=== PATIENT | female | born 1960 | race Caucasian/White ===

== ENCOUNTER 2017-09-29 06:58 | Inpatient (IN) | payer MEDICARE ==
[~2017-09-29] VITALS: Ht 165.1 cm; Wt 81.2 kg
[2017-09-29] MEDS ORDERED: Sodium Chloride 500ML 500 ML IV ONE (07:06)
[2017-09-29] MEDS ORDERED: Pantoprazole Inj IVP ONE (07:15)
[2017-09-29] MEDS ORDERED: ALPRAZolam 0.5mg tab ORAL ONE (07:15)
[2017-09-29 08:01] LABS: BASOPHILS % (AUTO) 1.1 % (0.0-2.0); EOSINOPHILS % (AUTO) 0.6 % (0.0-3.0); HEMATOCRIT 37.4 % (37.0-47.0); HEMOGLOBIN 12.8 G/DL (12.0-16.0); LYMPHOCYTES % (AUTO) 37.4 % (20.0-45.0); MEAN CORPUSCULAR VOLUME 89 FL (80-99); MONOCYTES % (AUTO) 2.7 % (1.0-10.0); NEUTROPHILS % (AUTO) 58.3 % (45.0-75.0); PLATELET COUNT 341 K/UL (150-450); RED BLOOD COUNT 4.19 M/UL (4.20-5.40); RED CELL DISTRIBUTION WIDTH 12.6 % (11.6-14.8); WHITE BLOOD COUNT 9.1 K/UL (4.8-10.8)
--- NOTE | 2017-09-29 08:03 | Emergency Room Report ---
History of Present Illness General Chief Complaint: General Complaint Source: Patient Present Illness HPI Patient presents with complaints of body ache and cramping Denies any headache denies any chest pain Patient has some scattering of thought process Requesting Xanax, then requesting Valium stating that it works better for her cramps After further discussion patient also reports dark blood per rectum and also vomiting of blood Dark material starting yesterday Patient reports feeling weak and lethargic Denies any fever Allergies: Coded Allergies: HALOPERIDOL (Verified Allergy, Unknown, 09/29/17) SULFA (SULFONAMIDE ANTIBIOTICS) (Verified Allergy, Unknown, 09/29/17) Patient History Past Medical History: see triage record Pertinent Family History: none Reviewed Nursing Documentation: PMH: Agreed; PSxH: Agreed Nursing Documentation-PMH Past Medical History: No History, Except For History Of Psychiatric Problem: Yes - Bipolar Review of Systems All Other Systems: negative except mentioned in HPI Physical Exam Vital Signs Date Time Temp Pulse Resp B/P (MAP) Pulse Ox O2 Delivery O2 Flow Rate FiO2 09/29/17 06:50 96.8 90 18 135/72 91 Room Air 96.8 Sp02 EP Interpretation: reviewed, normal General Appearance: well appearing, no apparent distress Head: normocephalic, atraumatic Eyes: bilateral eye PERRL, bilateral eye EOMI ENT: hearing grossly normal, normal pharynx, TMs + canals normal, uvula midline Neck: full range of motion, supple, no meningismus, no bony tend Respiratory: lungs clear, normal breath sounds, no rhonchi, no respiratory distress, no retraction, no accessory muscle use Cardiovascular #1: normal peripheral pulses, regular rate, rhythm, no edema, no gallop, no JVD, no murmur Gastrointestinal: normal bowel sounds, non tender, soft, no mass, no organomegaly, non-distended, no guarding, no hernia, no pulsatile mass, no rebound, other - Melena on the bed sheat Genitourinary: no CVA tenderness Musculoskeletal: normal inspection Neurologic: oriented x3, responsive, unattended ground sensor specialist III-XII nml as tested, motor strength/ tone normal, sensory intact Psychiatric: mood/affect normal Skin: normal color, no rash, warm/dry, palpation normal Lymphatic: normal inspection, no adenopathy Medical Decision Making Diagnostic Impression: Primary Impression: GI bleed ER Course Multiple differentials considered given the patient's melena on the exam GI bleeding is considered patient was given IV medication for that At this time the hemoglobin is appropriate Which provide some reassurance nevertheless given the patient's tachycardia and presentation will require inpatient care Labs Test 09/29/17 07:20 09/29/17 08:30 White Blood Count 9.1 K/UL (4.8-10.8) Red Blood Count 4.19 M/UL (4.20-5.40) Hemoglobin 12.8 G/DL (12.0-16.0) Hematocrit 37.4 % (37.0-47.0) Mean Corpuscular Volume 89 FL (80-99) Mean Corpuscular Hemoglobin 30.5 PG (27.0-31.0) Mean Corpuscular Hemoglobin Concent 34.1 G/DL (32.0-36.0) Red Cell Distribution Width 12.6 % (11.6-14.8) Platelet Count 341 K/UL (150-450) Mean Platelet Volume 7.1 FL (6.5-10.1) Neutrophils (%) (Auto) 58.3 % (45.0-75.0) Lymphocytes (%) (Auto) 37.4 % (20.0-45.0) Monocytes (%) (Auto) 2.7 % (1.0-10.0) Eosinophils (%) (Auto) 0.6 % (0.0-3.0) Basophils (%) (Auto) 1.1 % (0.0-2.0) Sodium Level 138 MMOL/L (136-145) Potassium Level 4.6 MMOL/L (3.5-5.1) Chloride Level 103 MMOL/L (98-107) Carbon Dioxide Level 24 MMOL/L (21-32) Anion Gap 11 mmol/L (5-15) Blood Urea Nitrogen 49 mg/dL (7-18) Creatinine 1.1 MG/DL (0.55-1.30) Estimat Glomerular Filtration Rate 51.2 mL/min (>60) Glucose Level 146 MG/DL (74-106) Calcium Level 9.1 MG/DL (8.5-10.1) Total Bilirubin 0.5 MG/DL (0.2-1.0) Aspartate Amino Transf (AST/SGOT) 20 U/L (15-37) Alanine Aminotransferase (ALT/SGPT) 29 U/L (12-78) Alkaline Phosphatase 137 U/L (46-116) Total Creatine Kinase 56 U/L (26-308) Creatine Kinase MB 1.3 NG/ML (0.0-3.6) Creatine Kinase MB Relative Index 2.3 Troponin I 0.000 ng/mL (0.000-0.056) Total Protein 7.7 G/DL (6.4-8.2) Albumin 3.4 G/DL (3.4-5.0) Globulin 4.3 g/dL Albumin/Globulin Ratio 0.8 (1.0-2.7) Lipase 90 U/L (73-393) Rhythm Strip Diag. Results EP Interpretation: yes Rate: 98 Rhythm: NSR, no PVC's, no ectopy Chest X-Ray Diagnostic Results Chest X-Ray Diagnostic Results : Chest X-Ray Ordered: Yes # of Views/Limited/Complete: 1 View Indication: Chest Pain EP Interpretation: Yes Interpretation: no consolidation, no effusion, no pneumothorax Impression: No acute disease Electronically Signed by: Hermann Neville DO Last Vital Signs Date Time Temp Pulse Resp B/P (MAP) Pulse Ox O2 Delivery O2 Flow Rate FiO2 09/29/17 06:50 96.8 90 18 135/72 91 Room Air 96.8 Status: improved Disposition: ADMITTED INPATIENT Condition: Serious Hermann Neville DO Sep 29, 2017 08:03
[2017-09-29 08:14] LABS: ANION GAP 11 mmol/L (5-15); BLOOD UREA NITROGEN 49 mg/dL (7-18); CALCIUM 9.1 MG/DL (8.5-10.1); CARBON DIOXIDE 24 MMOL/L (21-32); CHLORIDE 103 MMOL/L (98-107); CREATININE 1.1 MG/DL (0.55-1.30); POTASSIUM 4.6 MMOL/L (3.5-5.1); SODIUM 138 MMOL/L (136-145)
[2017-09-29 08:27] LABS: ALANINE AMINOTRANSFERASE 29 U/L (12-78); ALBUMIN 3.4 G/DL (3.4-5.0); ALBUMIN/GLOBULIN RATIO 0.8 (1.0-2.7); ALKALINE PHOSPHATASE 137 U/L (46-116); ASPARTATE AMINO TRANSFERASE 20 U/L (15-37); BILIRUBIN,TOTAL 0.5 MG/DL (0.2-1.0); CKMB 1.3 NG/ML (0.0-3.6); CREATINE KINASE 56 U/L (26-308)
[2017-09-29 08:52] VITALS: BP 86/32
[2017-09-29 09:02] LABS: APPEARANCE,URINE SLIGHTLY CLOUDY; COLOR,URINE YELLOW
[2017-09-29 09:03] LABS: BILIRUBIN, URINE 2+ (NEGATIVE); GLUCOSE, URINE (UA) NEGATIVE (NEGATIVE); KETONES,URINE 1+ (NEGATIVE); LEUKOCYTE ESTERASE ,URINE 3+ (NEGATIVE); NITRITE,URINE NEGATIVE (NEGATIVE); PH,URINE 5 (4.5-8.0); PROTEIN,URINE 3+ (NEGATIVE); UROBILINOGEN,URINE 1 MG/DL (0.0-1.0)
[2017-09-29] MEDS ORDERED: VIBRAMYCIN100 MG ORAL (09:49)
[2017-09-29] MEDS ORDERED: METRONIDAZOLE500 MG ORAL (09:49)
[2017-09-29] MEDS ORDERED: DIAZEPAM10 MG ORAL (09:49)
[2017-09-29 10:50] VITALS: BP 132/65
--- NOTE | 2017-09-29 10:51 | Diagnostic Imaging Report ---
Indication: Dyspnea Comparison: None A single view chest radiograph was obtained. Findings: Cardiomediastinal appearance is within normal limits for age. Pulmonary vascularity is appropriate. The diaphragmatic contour is smooth and costophrenic angles are sharp. No pleural effusions are identified. The bones are unremarkable. Left hemidiaphragm is slightly elevated. Impression: No acute findings
[2017-09-29 12:00] VITALS: BP 111/68
[2017-09-29] MEDS: 1/2NS w/KCl 20mEq 1000ml 1,000 ML IV SCH (12:31)
--- NOTE | 2017-09-29 16:59 | Cardiology Report ---
APPROVED REPORT EKG Measurement Heart [id number] OR [id number] [id number] Sinus tachycardia Left anterior fascicular block Cannot rule out Inferior infarct, age undetermined Cannot rule out Anterior infarct, age undetermined Abnormal ECG
[2017-09-29 20:00] VITALS: BP 141/96
[2017-09-29] MEDS: Pantoprazole Inj IVP SCH (21:00)
--- NOTE | 2017-09-29 21:00 | History and Physical Report ---
DATE OF ADMISSION: 09/29/2017 CHIEF COMPLAINT: Multiple, the patient is not focused. HISTORY OF PRESENT ILLNESS: This is a 57-year-old female from [facility] admitted with multiple complaints. She lives in a psychiatric [facility]. PAST MEDICAL HISTORY: Schizophrenia. MEDICATIONS: Valium 10 mg b.i.d., doxycycline one daily, Flagyl 500 mg t.i.d., the indication for which are not known. ALLERGIES: Haloperidol and sulfa. SOCIAL HISTORY: Unable to obtain secondary to unfocused, has multiple nonspecific complaints. FAMILY HISTORY: Unable to obtain secondary to unfocused, has multiple nonspecific complaints. REVIEW OF SYSTEMS: Unable to obtain secondary to unfocused, has multiple nonspecific complaints. PHYSICAL EXAMINATION: GENERAL: This is an elderly female, who is in no acute distress. VITAL SIGNS: Blood pressure 86/32, pulse 94 and regular, respirations 20, and temperature 98.2 degrees. HEENT: The head is normocephalic and atraumatic. Pupils are equal, round and reactive to light and accommodation consensually. NECK: Supple. Trachea midline. There was no lymphadenopathy or thyromegaly. LUNGS: Clear to auscultation and percussion. HEART: Regular rate and rhythm without rubs, murmurs, or gallops. ABDOMEN: Soft and nontender. Bowel sounds were active. EXTREMITIES: No clubbing, cyanosis, or edema. NEUROLOGICAL: She is confused. There were no gross focal finding. LABORATORY AND ANCILLARY DATA: CBC within normal limits. Chemistry, alkaline phosphatase 137, otherwise within normal limits. ASSESSMENT: Suspected GI bleed due to the patient's melena. PLAN: 1. We will admit to telemetry. 2. GI consult. 3. Recheck hemoglobin and hematocrit. 4. Proton pump inhibitor. Tiffany Herman M.D. DR: KATT JOB#: [id number] CC: ELIZABETH
[2017-09-30] VITALS: BP 108/43
[2017-09-30] MEDS: 1/2NS w/KCl 20mEq 1000ml 1,000 ML IV SCH ×2 (00:48→13:40)
[2017-09-30 04:00] VITALS: BP 120/75
--- NOTE | 2017-09-30 06:54 | General Progress Note ---
Assessment/Plan Assessment/Plan GIB? Recheck CBC. GI called. Subjective Allergies: Coded Allergies: HALOPERIDOL (Verified Allergy, Unknown, 09/29/17) SULFA (SULFONAMIDE ANTIBIOTICS) (Verified Allergy, Unknown, 09/29/17) Subjective Manic. Unreliable c/o. Objective Last 24 Hour Vital Signs Date Time Temp Pulse Resp B/P (MAP) Pulse Ox O2 Delivery O2 Flow Rate FiO2 09/30/17 04:00 111 09/30/17 04:00 98.0 115 20 120/75 95 Room Air 98.0 09/30/17 00:00 100 09/30/17 00:00 97.0 107 20 108/43 100 Room Air 97.0 09/29/17 20:00 116 09/29/17 20:00 97.3 104 18 141/96 98 Room Air 97.3 09/29/17 16:00 103 09/29/17 12:00 98.0 84 18 111/68 96 Room Air 98.0 09/29/17 11:15 98.2 93 18 132/65 95 Room Air 2.0 98.2 09/29/17 10:50 93 18 132/65 95 Room Air 09/29/17 08:52 98.2 94 18 86/32 99 Nasal Cannula 2.0 98.2 Intake and Output 09/29/17 09/30/17 19:00 07:00 Intake Total 1020 ml Balance 1020 ml Intake Oral 1020 ml Laboratory Tests 09/29/17 07:20: White Blood Count 9.1, Red Blood Count 4.19L, Hemoglobin 12.8, Hematocrit 37.4, Mean Corpuscular Volume 89, Mean Corpuscular Hemoglobin 30.5, Mean Corpuscular Hemoglobin Concent 34.1, Red Cell Distribution Width 12.6, Platelet Count 341, Mean Platelet Volume 7.1, Neutrophils (%) (Auto) 58.3, Lymphocytes (%) (Auto) 37.4, Monocytes (%) (Auto) 2.7, Eosinophils (%) (Auto) 0.6, Basophils (%) (Auto ) 1.1, Sodium Level 138, Potassium Level 4.6, Chloride Level 103, Carbon Dioxide Level 24, Anion Gap 11, Blood Urea Nitrogen 49H, Creatinine 1.1, Estimat Glomerular Filtration Rate 51.2, Glucose Level 146H, Calcium Level 9.1, Total Bilirubin 0.5, Aspartate Amino Transf (AST/SGOT) 20, Alanine Aminotransferase (ALT/SGPT) 29, Alkaline Phosphatase 137H, Total Creatine Kinase 56, Creatine Kinase MB 1.3, Creatine Kinase MB Relative Index 2.3, Troponin I 0.000, Total Protein 7.7, Albumin 3.4, Globulin 4.3, Albumin/ Globulin Ratio 0.8L, Lipase 90 09/29/17 08:30: Urine Color Yellow, Urine Appearance Slightly cloudy, Urine pH 5, Urine Specific [place] 1.020, Urine Protein 3+H, Urine Glucose (UA) Negative, Urine Ketones 1+H, Urine Occult Blood 2+H, Urine Nitrite Negative, Urine Bilirubin 2+H , Urine Ictotest Negative, Urine Urobilinogen 1H, Urine Leukocyte Esterase 3+H, Urine RBC 2-4H, Urine WBC 60-80H, Urine Squamous Epithelial Cells ModerateH, Urine Bacteria ModerateH Height (Feet): 5 Height (Inches): 5.00 Weight (Pounds): 180 Objective Cv RR Lungs CTA Abd SNT. BS + E No CCE Tiffany Herman MD Sep 30, 2017 06:54
[2017-09-30 08:00] VITALS: BP 128/78
--- NOTE | 2017-09-30 08:03 | Anethesia Preoperative Eval ---
Anesthesia Pre-op PMH/ROS General Date of Evaluation: Sep 30, 2017 Time of Evaluation: 08:00 Anesthesiologist: shala ASA Score: ASA 2 Mallampati Score Class I : Soft palate, uvula, fauces, pillars visible Class II: Soft palate, uvula, fauces visible Class III: Soft palate, base of uvula visible Class IV: Only hard plate visible Mallampati Classification: Class II Surgeon: yevgeniy Diagnosis: gi bleed Surgical Procedure: egd Anesthesia History: none Social History: smoking - nonsmoker Family History: no anesthesia problems Allergies: Coded Allergies: HALOPERIDOL (Verified Allergy, Unknown, 09/29/17) SULFA (SULFONAMIDE ANTIBIOTICS) (Verified Allergy, Unknown, 09/29/17) Medications: see eMAR Past Medical History Gastrointestinal/Genitourinary: Reports: other - gi bleed Neurologic/Psychiatric: Reports: other - bulimia Anesthesia Pre-op Phys. Exam Physician Exam Last Vital Signs Date Time Temp Pulse Resp B/P (MAP) Pulse Ox O2 Delivery O2 Flow Rate FiO2 09/30/17 04:00 111 09/30/17 04:00 98.0 20 120/75 95 Room Air 98.0 09/29/17 11:15 2.0 Constitutional: NAD Neurologic: CN 2-12 intact Cardiovascular: RRR Respiratory: CTA Gastrointestinal: S/NT/ND Airway Exam Mallampati Score: Class II MO: limited Neck: short TMD: 2fb ROM: limited Anesthesia Pre-op A/P Risk Assessment & Plan Assessment: asa2 Plan: mac Status Change Before Surgery: No Pre-Antibiotics Drug: YUSRA Melo Sep 30, 2017 08:03
[2017-09-30] MEDS ORDERED: Midazolam 2mg/2ml Inj IVP PRN (08:15)
[2017-09-30] MEDS ORDERED: DiphenhydrAMINE 50mg/ml Inj IVP PRN (08:15)
[2017-09-30] MEDS ORDERED: Atropine Inj 1mg/10ml Syr IV PRN (08:15)
[2017-09-30] MEDS ORDERED: fentaNYL 100 mcg/2 mL IV PRN (08:15)
[2017-09-30] MEDS ORDERED: Pantoprazole Inj IVP SCH (09:00)
[2017-09-30] MEDS: Pantoprazole Inj IVP SCH ×2 (09:15→21:00)
--- NOTE | 2017-09-30 11:05 | Consultation ---
History of Present Illness General Chief Complaint: General Complaint Present Illness Allergies: Coded Allergies: HALOPERIDOL (Verified Allergy, Unknown, 09/29/17) SULFA (SULFONAMIDE ANTIBIOTICS) (Verified Allergy, Unknown, 09/29/17) Patient History Healthcare decision maker Resuscitation status Advanced Directive on File Physical Exam Last 24 Hour Vital Signs Date Time Temp Pulse Resp B/P (MAP) Pulse Ox O2 Delivery O2 Flow Rate FiO2 09/30/17 08:00 97.7 105 20 128/78 97 Room Air 97.7 09/30/17 07:39 78 09/30/17 04:00 111 09/30/17 04:00 98.0 115 20 120/75 95 Room Air 98.0 09/30/17 00:00 100 09/30/17 00:00 97.0 107 20 108/43 100 Room Air 97.0 09/29/17 20:00 116 09/29/17 20:00 97.3 104 18 141/96 98 Room Air 97.3 09/29/17 16:00 103 09/29/17 12:00 98.0 84 18 111/68 96 Room Air 98.0 09/29/17 11:15 98.2 93 18 132/65 95 Room Air 2.0 98.2 Intake and Output 09/29/17 09/30/17 19:00 07:00 Intake Total 1020 ml Balance 1020 ml Intake Oral 1020 ml Height (Feet): 5 Height (Inches): 5.00 Weight (Pounds): 180 Medications Current Medications Medications (Trade) Dose Ordered Sig/Sherrie Route PRN Reason Start Time Stop Time Status Last Admin Dose Admin Al Hydroxide/Mg Hydroxide (Mylanta) 15 ml Q1H PRN ORAL gi upset 09/30/17 08:15 09/30/17 14:00 Atropine Sulfate (Atropine) 0.5 mg Q5M PRN IV bpm less than 45 09/30/17 08:15 09/30/17 14:00 Chlorpromazine (Thorazine) 25 mg Q6H PRN ORAL Agitation 09/30/17 11:15 10/30/17 11:14 UNV Dextrose (Dextrose 50%) 25 ml STAT PRN IV Hypoglycemia 09/29/17 10:45 10/29/17 10:44 Dextrose (Dextrose 50%) 50 ml STAT PRN IV Hypoglycemia 09/29/17 10:45 10/29/17 10:44 Diphenhydramine HCl (Benadryl) 25 mg Q15M PRN IVP Itching 09/30/17 08:15 09/30/17 14:00 Fentanyl Citrate (Sublimaze 100 mcg/2 mL) 25 mcg Q10M PRN IV Moderate Pain (Pain Scale 4-6) 09/30/17 08:15 09/30/17 14:00 Fluphenazine Decanoate (Prolixin Deconate) 25 mg ONCE ONCE IM 09/30/17 11:15 09/30/17 11:16 UNV Hydralazine HCl (Apresoline) 5 mg Q30M PRN IV SBP>160 OR___/DBP>90 OR___ 09/30/17 08:15 09/30/17 14:00 Midazolam HCl (Versed 2mg/2ml vial) 1 mg Q15M PRN IVP For Anxiety 09/30/17 08:15 09/30/17 14:00 Ondansetron HCl (Zofran) 4 mg Q1H PRN IVP Nausea & Vomiting 09/30/17 08:15 09/30/17 14:00 Pantoprazole (Protonix) 40 mg Q12HR IVP 09/29/17 21:00 10/30/17 08:59 09/30/17 09:15 Sodium 1,000 ml @ 75 mls/hr [id number] IV 09/29/17 11:00 10/29/17 10:59 09/30/17 00:48 Assessment/Plan Assessment/Plan the pt lacks capacity to make any decisions. therefore next of keen should make all the decisions Orlin Carrasquillo M.D. Sep 30, 2017 11:05
[2017-09-30] MEDS: Depakote 500mg tab ORAL SCH ×2 (11:46→21:00)
[2017-09-30 12:00] VITALS: BP 126/74
[2017-09-30] MEDS ORDERED: fluPHENAZine Decanoate 25mg Inj IM SCH (12:00)
--- NOTE | 2017-09-30 15:26 | General Progress Note ---
Assessment/Plan Status: not improved, unchanged Assessment/Plan bipolar d/o the pt lacks capacity d/w brother who was also irrational cont current meds Subjective Date patient seen: Sep 30, 2017 Neurologic/Psychiatric: Reports: anxiety, depressed, emotional problems Allergies: Coded Allergies: HALOPERIDOL (Verified Allergy, Unknown, 09/29/17) SULFA (SULFONAMIDE ANTIBIOTICS) (Verified Allergy, Unknown, 09/29/17) Objective Last 24 Hour Vital Signs Date Time Temp Pulse Resp B/P (MAP) Pulse Ox O2 Delivery O2 Flow Rate FiO2 09/30/17 12:00 97.5 97 20 126/74 97 Room Air 97.5 09/30/17 11:24 98 09/30/17 08:00 97.7 105 20 128/78 97 Room Air 97.7 09/30/17 07:39 78 09/30/17 04:00 111 09/30/17 04:00 98.0 115 20 120/75 95 Room Air 98.0 09/30/17 00:00 100 09/30/17 00:00 97.0 107 20 108/43 100 Room Air 97.0 09/29/17 20:00 116 09/29/17 20:00 97.3 104 18 141/96 98 Room Air 97.3 09/29/17 16:00 103 Intake and Output 09/29/17 09/30/17 19:00 07:00 Intake Total 1020 ml Balance 1020 ml Intake Oral 1020 ml Height (Feet): 5 Height (Inches): 5.00 Weight (Pounds): 180 General Appearance: no apparent distress, alert, confused, agitated Neurologic: alert, oriented x 3, responsive Orlin Carrasquillo M.D. Sep 30, 2017 15:26
[2017-09-30 16:00] VITALS: BP 125/73
[2017-09-30 16:37] LABS: ANION GAP 10 mmol/L (5-15); BASOPHILS % (AUTO) 1.2 % (0.0-2.0); BLOOD UREA NITROGEN 31 mg/dL (7-18); CALCIUM 8.4 MG/DL (8.5-10.1); CARBON DIOXIDE 23 MMOL/L (21-32); CHLORIDE 103 MMOL/L (98-107); CREATININE 0.8 MG/DL (0.55-1.30); EOSINOPHILS % (AUTO) 0.5 % (0.0-3.0); HEMATOCRIT 28.1 % (37.0-47.0); HEMOGLOBIN 9.8 G/DL (12.0-16.0); LYMPHOCYTES % (AUTO) 20.4 % (20.0-45.0); MEAN CORPUSCULAR VOLUME 88 FL (80-99); MONOCYTES % (AUTO) 6.6 % (1.0-10.0); NEUTROPHILS % (AUTO) 71.1 % (45.0-75.0); PLATELET COUNT 223 K/UL (150-450); POTASSIUM 3.7 MMOL/L (3.5-5.1); RED BLOOD COUNT 3.18 M/UL (4.20-5.40); RED CELL DISTRIBUTION WIDTH 12.9 % (11.6-14.8); SODIUM 136 MMOL/L (136-145); WHITE BLOOD COUNT 10.2 K/UL (4.8-10.8)
--- NOTE | 2017-09-30 17:32 | GI Initial Consult Note ---
History of Present Illness General Date patient seen: Sep 30, 2017 Time patient seen: 10:00 Reason for Hospitalization: General Complaint Referring physician: SOLITARIO VIDES Reason for Consultation: GI BLEED Present Illness HPI Patient presents with complaints of body ache and cramping Denies any headache denies any chest pain Patient has some scattering of thought process Requesting Xanax, then requesting Valium stating that it works better for her cramps After further discussion patient also reports dark blood per rectum and also vomiting of blood Dark material starting yesterday Patient reports feeling weak and lethargic Denies any fever GI consulted for melena and hematemesis. Pt scheduled for EGD today, patient refused and case was cancelled. Labs show normocytic anemia. Unknown history of endoscopy / colonoscopy. Med list reviewed/reconciled: Yes Allergies: Coded Allergies: HALOPERIDOL (Verified Allergy, Unknown, 09/29/17) SULFA (SULFONAMIDE ANTIBIOTICS) (Verified Allergy, Unknown, 09/29/17) Patient History PMH Narrative Past Medical History: see triage record Pertinent Family History: none Reviewed Nursing Documentation: PMH: Agreed; PSxH: Agreed Nursing Documentation-PMH Past Medical History: No History, Except For History Of Psychiatric Problem: Yes - Bipolar Review of Systems All Other Systems: negative except mentioned in HPI Physical Exam Vital Signs Date Time Temp Pulse Resp B/P (MAP) Pulse Ox O2 Delivery O2 Flow Rate FiO2 09/29/17 06:50 96.8 90 18 135/72 91 Room Air 96.8 09/29/17 08:52 2.0 Sp02 EP Interpretation: reviewed, normal Labs Laboratory Tests Test 09/30/17 16:15 White Blood Count 10.2 K/UL (4.8-10.8) Red Blood Count 3.18 M/UL (4.20-5.40) L Hemoglobin 9.8 G/DL (12.0-16.0) L Hematocrit 28.1 % (37.0-47.0) L Mean Corpuscular Volume 88 FL (80-99) Mean Corpuscular Hemoglobin 31.0 PG (27.0-31.0) Mean Corpuscular Hemoglobin Concent 35.0 G/DL (32.0-36.0) Red Cell Distribution Width 12.9 % (11.6-14.8) Platelet Count 223 K/UL (150-450) Mean Platelet Volume 7.5 FL (6.5-10.1) Neutrophils (%) (Auto) 71.1 % (45.0-75.0) Lymphocytes (%) (Auto) 20.4 % (20.0-45.0) Monocytes (%) (Auto) 6.6 % (1.0-10.0) Eosinophils (%) (Auto) 0.5 % (0.0-3.0) Basophils (%) (Auto) 1.2 % (0.0-2.0) Prothrombin Time 10.8 SEC (9.30-11.50) Prothromb Time International Ratio 1.0 (0.9-1.1) Activated Partial Thromboplast Time 27 SEC (23-33) Sodium Level 136 MMOL/L (136-145) Potassium Level 3.7 MMOL/L (3.5-5.1) Chloride Level 103 MMOL/L (98-107) Carbon Dioxide Level 23 MMOL/L (21-32) Anion Gap 10 mmol/L (5-15) Blood Urea Nitrogen 31 mg/dL (7-18) H Creatinine 0.8 MG/DL (0.55-1.30) Estimat Glomerular Filtration Rate > 60 mL/min (>60) Glucose Level 176 MG/DL (74-106) H Calcium Level 8.4 MG/DL (8.5-10.1) L Ferritin 18 NG/ML (8-388) General Appearance: well appearing, no apparent distress, alert Head: normocephalic EENT: PERRL/EOMI, normal ENT inspection Neck: supple Respiratory: normal breath sounds, no respiratory distress Cardiovascular: normal rate Gastrointestinal: normal inspection, non tender, soft, normal bowel sounds, non -distended Rectal: deferred Genitourinary: no CVA tenderness Musculoskeletal: normal inspection, back normal Neurologic: normal inspection, alert, oriented x3, responsive Psychiatric: normal inspection, judgement/insight normal, memory normal Skin: normal inspection, normal color, no rash, warm/dry, palpation normal, well hydrated Lymphatic: normal inspection, no adenopathy Current Medications Current Medications Medications (Trade) Dose Ordered Sig/Sherrie Route PRN Reason Start Time Stop Time Status Last Admin Dose Admin Chlorpromazine (Thorazine) 25 mg Q6H PRN ORAL Agitation 09/30/17 11:15 10/30/17 11:14 Dextrose (Dextrose 50%) 25 ml STAT PRN IV Hypoglycemia 09/29/17 10:45 10/29/17 10:44 Dextrose (Dextrose 50%) 50 ml STAT PRN IV Hypoglycemia 09/29/17 10:45 10/29/17 10:44 Divalproex Sodium (Depakote) 500 mg EVERY 12 HOURS ORAL 09/30/17 11:15 10/30/17 11:14 Pantoprazole (Protonix) 40 mg Q12HR IVP 09/29/17 21:00 10/30/17 08:59 09/30/17 09:15 Sodium 1,000 ml @ 75 mls/hr [id number] IV 09/29/17 11:00 10/29/17 10:59 09/30/17 00:48 GI: Plan Problems: (1) Anemia (2) GI bleed Plan EGD cancelled today >> pt refused procedure adv to regular diet anemia work up OB stool r/o GI bleed monitor H&H, prn transfusions bowel regime ppi fu labs Discussed with Dr. Maier. Thank you for this patient referral, we will follow. Nelia Pina N.P. Sep 30, 2017 17:32
--- NOTE | 2017-09-30 19:15 | Consultation ---
DATE OF CONSULTATION: 09/29/2017 CONSULTING PHYSICIAN: Orlin Carrasquillo M.D. HISTORY OF PRESENT ILLNESS: The patient is a 57-year-old female with history of bipolar disorder with psychotic features, who has been admitted to the hospital due to upper GI bleed. The patient also has history and has history of schizophrenia. During evaluation, the patient has manic symptoms and has pressured speech and agitation. She is having grandiose delusions. She is not able to provide any meaningful . The patient is illogical, refusing all care and medication, not able to participate in the evaluation and answer questions appropriately. She has poor insight. The patient has grandiose delusions and is agitated, yelling, screaming. PAST PSYCHIATRIC HISTORY: Schizophrenia, bipolar disorder. The patient is unable to understand, process, communicate, or answer any questions. PAST PSYCHIATRIC HISTORY: Schizophrenia versus bipolar disorder with psychotic features, several psychiatric hospitalization. MEDICAL HISTORY: Hypertension, upper GI bleed. ALLERGIES: Haloperidol and sulfa. SUBSTANCE ABUSE HISTORY: No history of illicit drug use or alcohol. MENTAL STATUS EXAMINATION: The patient is alert and oriented to time, self, place. Mood is anxious and agitated. Affect is flat. Thought process, there is paucity of thought content. Thought content, no suicidal or homicidal ideations. ASSESSMENT: [place] I Bipolar disorder with psychotic features versus schizoaffective disorder. [place] II Deferred. [place] III Upper GI bleed. [place] IV Low. [place] V 20 PLAN: 1. The patient will be started on Depakote. 2. The patient lacks capacity to make decisions. 3. The patient will be given p.r.n. IM medication. 4. Provide the patient with supportive therapy and reality orientation. Orlin Carrasquillo M.D. DR: Dhiraj JOB#: [id number] CC:
[2017-09-30] MEDS ORDERED: LORazepam 1mg tab ORAL PRN (19:45)
[2017-09-30 20:00] VITALS: BP 123/69
[2017-09-30] MEDS: chlorproMAZINE 25mg tab ORAL PRN (23:05)
[2017-10-01] MEDS: 1/2NS w/KCl 20mEq 1000ml 1,000 ML IV SCH ×2 (03:00→16:20)
[2017-10-01 08:00] VITALS: BP 146/61
[2017-10-01] MEDS: Depakote 500mg tab ORAL SCH ×2 (08:19→20:08)
[2017-10-01] MEDS: chlorproMAZINE 25mg tab ORAL PRN ×2 (08:19→17:16)
[2017-10-01] MEDS: Pantoprazole Inj IVP SCH ×2 (08:19→20:07)
--- NOTE | 2017-10-01 08:37 | General Progress Note ---
Assessment/Plan Assessment/Plan GIB? Recheck CBC.Drop in HCT noted. Needs urgent endoscopies. Has ESBL UTI - refusing IV Abx. GI, Psych, ID following. Per pt's brother "OK to knock her out" for her.... Subjective Allergies: Coded Allergies: HALOPERIDOL (Verified Allergy, Unknown, 09/29/17) SULFA (SULFONAMIDE ANTIBIOTICS) (Verified Allergy, Unknown, 09/29/17) Subjective Manic. Unreliable c/o.Refusing all therapies! Refusing EGD +colonoscopy. Objective Last 24 Hour Vital Signs Date Time Temp Pulse Resp B/P (MAP) Pulse Ox O2 Delivery O2 Flow Rate FiO2 09/30/17 20:00 98.2 62 18 123/69 96 Room Air 98.2 09/30/17 16:00 97.0 67 18 125/73 95 Room Air 97.0 09/30/17 12:00 97.5 97 20 126/74 97 Room Air 97.5 09/30/17 11:24 98 Intake and Output 09/30/17 10/01/17 19:00 07:00 Intake Total 140 ml Output Total 2200 ml 500 ml Balance -2060 ml -500 ml Intake Oral 140 ml Output Urine Total 2200 ml 500 ml # Voids 1 Laboratory Tests 09/30/17 16:15: White Blood Count 10.2, Red Blood Count 3.18L, Hemoglobin 9.8L, Hematocrit 28.1L , Mean Corpuscular Volume 88, Mean Corpuscular Hemoglobin 31.0, Mean Corpuscular Hemoglobin Concent 35.0, Red Cell Distribution Width 12.9, Platelet Count 223, Mean Platelet Volume 7.5, Neutrophils (%) (Auto) 71.1, Lymphocytes (% ) (Auto) 20.4, Monocytes (%) (Auto) 6.6, Eosinophils (%) (Auto) 0.5, Basophils ( %) (Auto) 1.2, Prothrombin Time 10.8, Prothromb Time International Ratio 1.0, Activated Partial Thromboplast Time 27, Sodium Level 136, Potassium Level 3.7, Chloride Level 103, Carbon Dioxide Level 23, Anion Gap 10, Blood Urea Nitrogen 31H, Creatinine 0.8, Estimat Glomerular Filtration Rate > 60, Glucose Level 176H , Calcium Level 8.4L, Ferritin 18 Height (Feet): 5 Height (Inches): 5.00 Weight (Pounds): 180 Objective Cv RR Lungs CTA Abd SNT. BS + E No CCE Tiffany Herman MD October 01, 2017 08:37
[2017-10-01 12:00] VITALS: BP 168/111
[2017-10-01] MEDS ORDERED: fluPHENAZine Decanoate 25mg Inj IM SCH (13:00)
--- NOTE | 2017-10-01 13:12 | Infectious Diseases Prog Note ---
Assessment/Plan Assessment/Plan Full consult dictated: A) 1) esbl e.coli uti 2) patient refuses iv abx 3) schizophrenia 4) allergies - haldol and sulfa P) 1) levofloxacin (carbapenem drug of choice but patient refuses iv abx) 2) treat x 10 days for uti 3) thank you Subjective Allergies: Coded Allergies: HALOPERIDOL (Verified Allergy, Unknown, 09/29/17) SULFA (SULFONAMIDE ANTIBIOTICS) (Verified Allergy, Unknown, 09/29/17) Objective Vital Signs Last 24 Hour Vital Signs Date Time Temp Pulse Resp B/P (MAP) Pulse Ox O2 Delivery O2 Flow Rate FiO2 10/01/17 08:00 97.9 94 20 146/61 95 97.9 09/30/17 20:00 98.2 62 18 123/69 96 Room Air 98.2 09/30/17 16:00 97.0 67 18 125/73 95 Room Air 97.0 Height (Feet): 5 Height (Inches): 5.00 Weight (Pounds): 180 Microbiology Date/Time Source Procedure Growth Status 09/29/17 10:30 Nasal Nares MRSA Culture - Final NO METHICILLIN RESISTANT STAPH AUREUS... Complete 09/29/17 08:30 Urine,Clean Catch Urine Culture - Final Escherichia Coli - Esbl Complete 09/29/17 10:30 Rectum VRE Culture - Final NO VANCOMYCIN RESISTANT ENTEROCOCCUS ... Complete Laboratory Tests Test 09/30/17 16:15 White Blood Count 10.2 K/UL (4.8-10.8) Red Blood Count 3.18 M/UL (4.20-5.40) L Hemoglobin 9.8 G/DL (12.0-16.0) L Hematocrit 28.1 % (37.0-47.0) L Mean Corpuscular Volume 88 FL (80-99) Mean Corpuscular Hemoglobin 31.0 PG (27.0-31.0) Mean Corpuscular Hemoglobin Concent 35.0 G/DL (32.0-36.0) Red Cell Distribution Width 12.9 % (11.6-14.8) Platelet Count 223 K/UL (150-450) Mean Platelet Volume 7.5 FL (6.5-10.1) Neutrophils (%) (Auto) 71.1 % (45.0-75.0) Lymphocytes (%) (Auto) 20.4 % (20.0-45.0) Monocytes (%) (Auto) 6.6 % (1.0-10.0) Eosinophils (%) (Auto) 0.5 % (0.0-3.0) Basophils (%) (Auto) 1.2 % (0.0-2.0) Prothrombin Time 10.8 SEC (9.30-11.50) Prothromb Time International Ratio 1.0 (0.9-1.1) Activated Partial Thromboplast Time 27 SEC (23-33) Sodium Level 136 MMOL/L (136-145) Potassium Level 3.7 MMOL/L (3.5-5.1) Chloride Level 103 MMOL/L (98-107) Carbon Dioxide Level 23 MMOL/L (21-32) Anion Gap 10 mmol/L (5-15) Blood Urea Nitrogen 31 mg/dL (7-18) H Creatinine 0.8 MG/DL (0.55-1.30) Estimat Glomerular Filtration Rate > 60 mL/min (>60) Glucose Level 176 MG/DL (74-106) H Calcium Level 8.4 MG/DL (8.5-10.1) L Ferritin 18 NG/ML (8-388) Current Medications Medications (Trade) Dose Ordered Sig/Sherrie Route PRN Reason Start Time Stop Time Status Last Admin Dose Admin Chlorpromazine (Thorazine) 25 mg Q6H PRN ORAL Agitation 09/30/17 11:15 10/30/17 11:14 10/01/17 08:19 Dextrose (Dextrose 50%) 25 ml STAT PRN IV Hypoglycemia 09/29/17 10:45 10/29/17 10:44 Dextrose (Dextrose 50%) 50 ml STAT PRN IV Hypoglycemia 09/29/17 10:45 10/29/17 10:44 Divalproex Sodium (Depakote) 500 mg EVERY 12 HOURS ORAL 09/30/17 11:15 10/30/17 11:14 10/01/17 08:19 Fluphenazine Decanoate (Prolixin Deconate) 25 mg ONCE IM 10/01/17 13:00 10/01/17 14:00 10/01/17 12:45 Levofloxacin (Levaquin) 750 mg DAILY@1400 ORAL 10/01/17 14:00 5/8/18 23:59 Lorazepam (Ativan) 2 mg Q4H PRN ORAL Agitation 09/30/17 19:45 10/07/17 19:44 Pantoprazole (Protonix) 40 mg Q12HR IVP 09/29/17 21:00 10/30/17 08:59 09/30/17 09:15 Sodium 1,000 ml @ 75 mls/hr [id number] IV 09/29/17 11:00 10/29/17 10:59 09/30/17 00:48 GEOVANY CHAVEZ October 01, 2017 13:12
--- NOTE | 2017-10-01 14:12 | GI Progress Note ---
Assessment/Plan Problems: (1) GI bleed ICD Codes: K92.2 - Gastrointestinal hemorrhage, unspecified SNOMED: 42862347 (2) Anemia ICD Codes: D64.9 - Anemia, unspecified SNOMED: 618078391 Status: unchanged Status Narrative Discussed with Dr. Maier. Assessment/Plan psychiatric note >> patient does not have capacity to make self decisions EGD scheduled for tomorrow >> brother consented - adv to regular diet, NPO @ MN. - hold all blood thinners tonight. monitor H&H, prn transfusions bowel regime ppi fu labs Subjective Gastrointestinal/Abdominal: Reports: no symptoms Subjective limited Objective Last 24 Hour Vital Signs Date Time Temp Pulse Resp B/P (MAP) Pulse Ox O2 Delivery O2 Flow Rate FiO2 10/01/17 12:00 98.1 102 21 168/111 96 98.1 10/01/17 08:00 97.9 94 20 146/61 95 97.9 09/30/17 20:00 98.2 62 18 123/69 96 Room Air 98.2 09/30/17 16:00 97.0 67 18 125/73 95 Room Air 97.0 Intake and Output 09/30/17 10/01/17 19:00 07:00 Intake Total 140 ml Output Total 2200 ml 500 ml Balance -2060 ml -500 ml Intake Oral 140 ml Output Urine Total 2200 ml 500 ml # Voids 1 Laboratory Tests Test 09/30/17 16:15 White Blood Count 10.2 K/UL (4.8-10.8) Red Blood Count 3.18 M/UL (4.20-5.40) L Hemoglobin 9.8 G/DL (12.0-16.0) L Hematocrit 28.1 % (37.0-47.0) L Mean Corpuscular Volume 88 FL (80-99) Mean Corpuscular Hemoglobin 31.0 PG (27.0-31.0) Mean Corpuscular Hemoglobin Concent 35.0 G/DL (32.0-36.0) Red Cell Distribution Width 12.9 % (11.6-14.8) Platelet Count 223 K/UL (150-450) Mean Platelet Volume 7.5 FL (6.5-10.1) Neutrophils (%) (Auto) 71.1 % (45.0-75.0) Lymphocytes (%) (Auto) 20.4 % (20.0-45.0) Monocytes (%) (Auto) 6.6 % (1.0-10.0) Eosinophils (%) (Auto) 0.5 % (0.0-3.0) Basophils (%) (Auto) 1.2 % (0.0-2.0) Prothrombin Time 10.8 SEC (9.30-11.50) Prothromb Time International Ratio 1.0 (0.9-1.1) Activated Partial Thromboplast Time 27 SEC (23-33) Sodium Level 136 MMOL/L (136-145) Potassium Level 3.7 MMOL/L (3.5-5.1) Chloride Level 103 MMOL/L (98-107) Carbon Dioxide Level 23 MMOL/L (21-32) Anion Gap 10 mmol/L (5-15) Blood Urea Nitrogen 31 mg/dL (7-18) H Creatinine 0.8 MG/DL (0.55-1.30) Estimat Glomerular Filtration Rate > 60 mL/min (>60) Glucose Level 176 MG/DL (74-106) H Calcium Level 8.4 MG/DL (8.5-10.1) L Ferritin 18 NG/ML (8-388) Height (Feet): 5 Height (Inches): 5.00 Weight (Pounds): 180 General Appearance: WD/WN, no apparent distress, alert Cardiovascular: normal rate Respiratory/Chest: normal breath sounds, no respiratory distress Abdominal Exam: normal bowel sounds, non tender, soft Extremities: normal range of motion, non-tender Nelia Pina N.P. October 01, 2017 14:12
[2017-10-01 16:00] VITALS: BP 125/71
--- NOTE | 2017-10-01 17:30 | Consultation ---
DATE OF CONSULTATION: 10/01/2017 INFECTIOUS DISEASE CONSULTATION CONSULTING PHYSICIAN: Max Tai M.D. ATTENDING PHYSICIAN: Tiffany Herman M.D. REASON FOR CONSULTATION: ESBL E. coli UTI. CHIEF COMPLAINT: The patient's chief complaint coming into the hospital is GI bleed. HISTORY OF PRESENT ILLNESS: The patient is a 57-year-old female with history of underlying schizophrenia who comes into [facility] is GI bleed. The patient was seen by Gastroenterology consult and there was a plan for EGD but the patient refused treatment. Urinalysis was noted to have 3+ leukocyte esterase, 60 to 80 white blood cells, and moderate bacteria. The patient has ESBL E. coli urinary tract infection based on urine culture. The patient using refusing IV antibiotics and IV therapy. Infectious Diseases consultation requested for antibiotic management. Case communicated with Dr. Herman and discussed with the RN. The patient is agitated and again refusing IV antibiotics PAST MEDICAL HISTORY: The patient's past medical history includes history of the following. The patient comes in as discussed with possible GI bleed. She has history of schizophrenia. She has history of bipolar disease. No history of diabetes but looks like she might have history of hypertension but I am not sure of that. MEDICATIONS: Upon reviewing the MAR, the patient is on the following medications. The patient is on Levaquin, Prolixin, Ativan, Thorazine, Depakote, Protonix, IV fluids. Outside medications noted and reconciliated. Looks like at this point there was no outside medications but I have to review the other records. ALLERGIES: Include haloperidol and sulfa. FAMILY HISTORY: Noncontributory. No mention of exposure to tuberculosis or cancer SOCIAL HISTORY: Negative for smoking, alcohol, or drug abuse. REVIEW OF SYSTEMS: CONSTITUTIONAL: The patient has generalized fatigue but no focal weakness. No fever, chills, night sweats, weight loss mentioned. HEAD NECK: No thrush, dysphagia, sinus tenderness, or neck stiffness. CARDIAC: No chest pain or palpitations. GASTROINTESTINAL: No nausea, vomiting, or diarrhea. GENITOURINARY: She has some dysuria and frequency. No CVA tenderness. PULMONARY: No congestion, shortness of breath, hemoptysis, or secretions. SKIN: No rash or itching. EXTREMITIES: No extremity pain. NEUROLOGIC: No seizures. No fever or chills. PHYSICAL EXAMINATION: VITAL SIGNS: Temperature is 97.9, pulse rate 94, respiratory rate 20, blood pressure 146/61, saturation 96% on room air. GENERAL: Alert and responsive, no acute distress. She is agitated. HEAD NECK EXAM: Oral exam, no thrush. Eye exam, no icterus. Neck is supple. No JVD. Normocephalic. LUNGS: Clear bilaterally. No rhonchi or rales. HEART: Regular rate and rhythm. No obvious gallop or murmur. ABDOMEN: Soft. Positive bowel sounds. Nontender SKIN: No rash. MUSCULOSKELETAL: No effusion. Legs are without cellulitis. PERIPHERAL VASCULAR: No cyanosis or gangrene. GENITOURINARY: No Cole. Denies any CVA tenderness. LINES: She has no IV access. NEUROLOGIC: Generalized weakness, responsive, refuses. LABORATORY DATA: Laboratory data is as follows, white count 10.2, hemoglobin 9.8. Creatinine 0.8. LFTs noted. UA had 3+ leukocyte esterase, 60 to 80 white blood cells. Urine culture had greater 100,000 E. coli sensitive to fluoroquinolones and carbapenems. Chest x-ray shows no acute findings. ASSESSMENT AND PLAN: 1. The patient has ESBL E. coli urinary tract infection possible complicated urinary tract infection. The patient refusing IV antibiotics. The drug of choice are carbapenems including Invanz and meropenem however patient is refusing IV therapy. The patient will be placed on Levaquin 750 mg daily. Other option is Cipro however this b.i.d. dosing and because the patient is somewhat noncompliant we will try Levaquin 750 mg a day to help with compliance since it is once a day dosing. The patient will need 10 days of antibiotics and we will watch the patient clinically. Orders were entered. Case discussed with RN and the patient. 2. The patient has history of schizophrenia. 3. Bipolar disease. 4. Questionable hypertension. 5. GI bleed. 6. The patient refusing endoscopy. 7. Allergies to haloperidol and sulfa. 8. Social history negative. 9. Family History noncontributory. 10. MAR was noted. 11. Case discussed with RN. 12. Notes and records were noted. 13. Orders were entered. 14. Case communicated with Dr. Herman and also discussed the RN. Max Tai M.D. DR: Tavo JOB#: [id number] CC:
[2017-10-01 20:00] VITALS: BP 129/81
[2017-10-02] VITALS: BP 132/79
[2017-10-02 04:00] VITALS: BP 122/69
[2017-10-02] MEDS: 1/2NS w/KCl 20mEq 1000ml 1,000 ML IV SCH (05:03)
--- NOTE | 2017-10-02 07:00 | General Progress Note ---
Assessment/Plan Assessment/Plan GIB? Recheck CBC.Drop in HCT noted. Needs urgent endoscopies. Has ESBL UTI - refusing IV Abx. GI, Psych, ID following. Per pt's brother . Unable to help the patient. DC to SNF! Subjective Allergies: Coded Allergies: HALOPERIDOL (Verified Allergy, Unknown, 09/29/17) SULFA (SULFONAMIDE ANTIBIOTICS) (Verified Allergy, Unknown, 09/29/17) Subjective Manic. Unreliable c/o.Refusing all therapies! Refusing EGD +colonoscopy. Objective Last 24 Hour Vital Signs Date Time Temp Pulse Resp B/P (MAP) Pulse Ox O2 Delivery O2 Flow Rate FiO2 10/02/17 04:00 96.6 79 18 122/69 97 96.6 10/02/17 00:00 96.9 82 18 132/79 97 96.9 10/01/17 20:00 97.5 90 18 129/81 97 97.5 10/01/17 16:00 97.7 100 20 125/71 99 97.7 10/01/17 12:00 98 10/01/17 12:00 98.1 102 21 168/111 96 98.1 10/01/17 08:00 78 10/01/17 08:00 97.9 94 20 146/61 95 97.9 Intake and Output 10/01/17 10/02/17 19:00 07:00 Intake Total 550 ml Output Total 1250 ml Balance 550 ml -1250 ml Intake Oral 550 ml Output Urine Total 1250 ml # Voids 2 Height (Feet): 5 Height (Inches): 5.00 Weight (Pounds): 179 Objective Cv RR Lungs CTA Abd SNT. BS + E No CCE Tiffany Herman MD October 02, 2017 06:59
[2017-10-02 08:00] VITALS: BP 100/72
[2017-10-02] MEDS: Pantoprazole Inj IVP SCH (08:30)
[2017-10-02] MEDS: Depakote 500mg tab ORAL SCH (08:38)
--- NOTE | 2017-10-02 11:40 | GI Progress Note ---
Assessment/Plan Problems: (1) GI bleed ICD Codes: K92.2 - Gastrointestinal hemorrhage, unspecified SNOMED: 85830335 (2) Anemia ICD Codes: D64.9 - Anemia, unspecified SNOMED: 741046276 Status: unchanged Status Narrative Discussed with Dr. Maier. Assessment/Plan psychiatric note >> patient does not have capacity to make self decisions patient refused EGD again cont current plan of care monitor H&H, prn transfusions bowel regime ppi fu labs Subjective Subjective limited Objective Last 24 Hour Vital Signs Date Time Temp Pulse Resp B/P (MAP) Pulse Ox O2 Delivery O2 Flow Rate FiO2 10/02/17 08:00 97.0 110 22 100/72 99 97.0 10/02/17 04:00 96.6 79 18 122/69 97 96.6 10/02/17 00:00 96.9 82 18 132/79 97 96.9 10/01/17 20:00 97.5 90 18 129/81 97 97.5 10/01/17 16:00 97.7 100 20 125/71 99 97.7 10/01/17 12:00 98 10/01/17 12:00 98.1 102 21 168/111 96 98.1 Intake and Output 10/01/17 10/02/17 19:00 07:00 Intake Total 550 ml Output Total 1250 ml Balance 550 ml -1250 ml Intake Oral 550 ml Output Urine Total 1250 ml # Voids 2 Height (Feet): 5 Height (Inches): 5.00 Weight (Pounds): 179 General Appearance: WD/WN, no apparent distress, alert Cardiovascular: normal rate Respiratory/Chest: normal breath sounds, no respiratory distress Abdominal Exam: normal bowel sounds, non tender, soft Extremities: normal range of motion, non-tender Nelia Pina N.P. October 02, 2017 11:40
--- NOTE | 2017-10-02 12:14 | General Progress Note ---
Assessment/Plan Status: stable Assessment/Plan bipolar d/o the pt lacks capacity d/w brother who was also irrational cont current meds Subjective Date patient seen: October 02, 2017 Neurologic/Psychiatric: Reports: anxiety, emotional problems Allergies: Coded Allergies: HALOPERIDOL (Verified Allergy, Unknown, 09/29/17) SULFA (SULFONAMIDE ANTIBIOTICS) (Verified Allergy, Unknown, 09/29/17) Subjective the pt cont to be labile and noncompliant. Objective Last 24 Hour Vital Signs Date Time Temp Pulse Resp B/P (MAP) Pulse Ox O2 Delivery O2 Flow Rate FiO2 10/02/17 08:00 97.0 110 22 100/72 99 97.0 10/02/17 04:00 96.6 79 18 122/69 97 96.6 10/02/17 00:00 96.9 82 18 132/79 97 96.9 10/01/17 20:00 97.5 90 18 129/81 97 97.5 10/01/17 16:00 97.7 100 20 125/71 99 97.7 Intake and Output 10/01/17 10/02/17 19:00 07:00 Intake Total 550 ml Output Total 1250 ml Balance 550 ml -1250 ml Intake Oral 550 ml Output Urine Total 1250 ml # Voids 2 Height (Feet): 5 Height (Inches): 5.00 Weight (Pounds): 179 General Appearance: WD/WN, no apparent distress, alert, agitated Orlin Carrasquillo M.D. October 02, 2017 12:14
--- NOTE | 2017-10-02 12:17 | Geriatric Progress Note ---
Assessment/Plan Assessment/Plan bipolar d/o the pt lacks capacity d/w brother who was also irrational cont current meds Subjective Interval Events 10/01/17 this is a late entry. the pt was vulgar and noncompliant with meds. the pt is not following direction. the pt is yelling Mood/Memory: Reports: prior hx, anxiety, emotional problems Geriatric Geriatric Last 24 Hour Vital Signs Date Time Temp Pulse Resp B/P (MAP) Pulse Ox O2 Delivery O2 Flow Rate FiO2 10/02/17 08:00 97.0 110 22 100/72 99 97.0 10/02/17 04:00 96.6 79 18 122/69 97 96.6 10/02/17 00:00 96.9 82 18 132/79 97 96.9 10/01/17 20:00 97.5 90 18 129/81 97 97.5 10/01/17 16:00 97.7 100 20 125/71 99 97.7 Intake and Output 10/01/17 10/02/17 19:00 07:00 Intake Total 550 ml Output Total 1250 ml Balance 550 ml -1250 ml Intake Oral 550 ml Output Urine Total 1250 ml # Voids 2 Current Medications Medications (Trade) Dose Ordered Sig/Sherrie Route PRN Reason Start Time Stop Time Status Last Admin Dose Admin Chlorpromazine (Thorazine) 25 mg Q6H PRN ORAL Agitation 09/30/17 11:15 10/30/17 11:14 10/01/17 17:16 Dextrose (Dextrose 50%) 25 ml STAT PRN IV Hypoglycemia 09/29/17 10:45 10/29/17 10:44 Dextrose (Dextrose 50%) 50 ml STAT PRN IV Hypoglycemia 09/29/17 10:45 10/29/17 10:44 Divalproex Sodium (Depakote) 500 mg EVERY 12 HOURS ORAL 09/30/17 11:15 10/30/17 11:14 10/01/17 08:19 Levofloxacin (Levaquin) 750 mg DAILY@1400 ORAL 10/01/17 14:00 10/08/17 23:59 10/01/17 13:40 Lorazepam (Ativan) 2 mg Q4H PRN ORAL Agitation 09/30/17 19:45 10/07/17 19:44 10/01/17 17:36 Pantoprazole (Protonix) 40 mg Q12HR IVP 09/29/17 21:00 10/30/17 08:59 09/30/17 09:15 Risperidone (RisperDAL) 2 mg BID ORAL 10/01/17 22:41 10/31/17 22:40 Sodium 1,000 ml @ 75 mls/hr [id number] IV 09/29/17 11:00 10/29/17 10:59 09/30/17 00:48 Height (Feet): 5 Height (Inches): 5.00 Weight (Pounds): 179 General Appearance: well nourished, no apparent distress, alert, good eye contact Neurologic: alert, oriented x3 Psychiatric Behavior: uncooperative Language/Speech: pressured, hyperverbal Orientation: person, place Affect: manic Insight: poor Thought Content: grandiose hallucinations Orlin Carrasquillo M.D. October 02, 2017 12:17
--- NOTE | 2017-10-03 18:05 | Discharge Summary ---
Discharge Summary Hospital Course Date of Admission Sep 29, 2017 at 08:19 Date of Discharge October 02, 2017 at 12:05 Admitting Diagnosis Gastrointestinal bleed HPI Dianne Caicedo is a 57 year old female who was admitted on Sep 29, 2017 at 08: 19 for Gastrointestinal Bleed Hospital Course [id number] Discharge Discharge Disposition Patient was discharged to SNF/Subacute Facility(03) Linda Ayers NP October 03, 2017 18:05
--- NOTE | 2017-10-03 20:15 | Discharge Summary 2 SIG ---
DATE OF ADMISSION: 09/29/2017 DATE OF DISCHARGE: 10/02/2017 GAME TECHNICIAN: 1. Orlin Carrasquillo M.D. 2. Jignesh Maier M.D. 3. Max Tai M.D. BRIEF HOSPITAL COURSE: The patient is a 57-year-old female from [facility] with past medical history of schizophrenia who presented to ED complaining of body ache and also reported dark blood per rectum and vomiting blood. On evaluation at ED, hemoglobin was 12.8, hematocrit 37. She was admitted for evaluation of GI bleed. She underwent psychiatric evaluation. She was assessed to lack the capacity to make any decisions. She was diagnosed with bipolar disorder. She underwent GI evaluation. The patient was scheduled for EGD however refused and procedure was canceled. Diet was then advanced to regular diet. She was placed on proton pump inhibitors and was given bowel regimen. She was started on Depakote. Urine culture showed growth of ESBL E. coli. Carbapenem was drug of choice however the patient refused to have IV insertion. The patient was instead given levofloxacin. There was a drop noted in the patient's hematocrit and would need endoscopy however the patient refusing all therapies. She was eventually discharged to a SNF. FINAL DIAGNOSES: 1. Possible GI bleed. 2. ESBL urinary tract infection. 3. Schizophrenia. 4. Bipolar disorder. 5. Refusal of care. DISPOSITION: The patient was discharged to [facility]. DISCHARGE DISPOSITION: The patient was discharged to [facility]. Tiffany Herman M.D. I have been assigned to dictate discharge summary on this account and I was not involved in the patient's management. Linda Ayers N.P. DR: Rebecca JOB#: [id number] CC:
== END 2017-10-02 12:05 | DRG 378 ==
LOC: EDBD 06:58 → EMR 07:30 → 2E 08:19 → EDBEDREQ 09:23
DX: K92.2 Gastrointestinal hemorrhage, unspecified (principal); N39.0 Urinary tract infection, site not specified; B96.20 Unspecified Escherichia coli [E. coli] as the cause of diseases classified elsewhere; Z16.12 Extended spectrum beta lactamase (ESBL) resistance; F20.9 Schizophrenia, unspecified; F31.9 Bipolar disorder, unspecified; Z53.29 Procedure and treatment not carried out because of patient's decision for other reasons; Z88.2 Allergy status to sulfonamides; Z88.8 Allergy status to other drugs, medicaments and biological substances; D64.9 Anemia, unspecified
CPT/HCPCS: 36415; 71045; 80048; 80053; 81003; 82550; 82553; 82728; 83690; 84484; 85025; 85610; 85730; 86850; 86900; 86901; 87081; 87086; 87181; 93005

== ENCOUNTER 2018-06-01 21:55 | Emergency (ER) | payer MEDICARE, OTHER ==
[~2018-06-01] VITALS: Ht 165.1 cm; Wt 77.6 kg
[~2018-06-01 21:55] MED LIST: DIAZEPAM10 MG ORAL; METRONIDAZOLE500 MG ORAL; VIBRAMYCIN100 MG ORAL
[2018-06-01 21:59] VITALS: BP 98/50
--- NOTE | 2018-06-01 22:01 | NUR ---
ED Nurse Note: pt brought in by [facility] c/o back pain for a month and progressively worsening, pt states it is 10/10 pain and norco usually works for pain. PT AA&ox4, gcs=15, skin warm and dry, resp even and unlabored, -n/v/d, pt reports she is not ambulatory, on wheelchair, noted small scaly lesion with [id number] open pink skin tear on rectal area, +galicia. pt resting in bed, provided warm blanket for comfort, will continue to monitor.
[2018-06-01] MEDS ORDERED: Norco 5mg/325mg tab ORAL ONE (22:30)
--- NOTE | 2018-06-01 22:34 | Emergency Room Report ---
History of Present Illness General Chief Complaint: Lower Back Pain or Injury Source: Patient Present Illness HPI This is a 58-year-old female with a history of schizophrenia and chronic pain. She is currently in an assisted-living. She is a chronic Cole in [facility]. She uses a wheelchair. She presents with chief complaint of back pain. This is a chronic problem but worse in the last week. She is currently not on any pain medication. Normally takes [place] and Valium. No nausea no vomiting. No fever chills but no incontinence of bowel or urine. No radiation of the pain. Worse with movement. Pain is 8 out of 10. Localized to the lower back. Allergies: Coded Allergies: FLUPHENAZINE (Unverified Allergy, Unknown, 06/01/18) HALOPERIDOL (Verified Allergy, Unknown, 09/29/17) QUETIAPINE (Unverified Allergy, Unknown, 06/01/18) SULFA (SULFONAMIDE ANTIBIOTICS) (Verified Allergy, Unknown, 09/29/17) Patient History Past Medical History: see triage record, old chart reviewed, psych hx Past Surgical History: other Pertinent Family History: none Social History: Denies: smoking Last Menstrual Period: ESPERANZA Now: No Immunizations: other Reviewed Nursing Documentation: PMH: Agreed; PSxH: Agreed Nursing Documentation-PMH Hx Cardiac Problems: No Hx Cancer: No Hx Gastrointestinal Problems: Yes - " History Of Psychiatric Problem: Yes Hx Neurological Problems: Yes Review of Systems Eye: Denies: eye pain, blurred vision ENT: Denies: ear pain, nose congestion, throat swelling Respiratory: Denies: cough, shortness of breath Cardiovascular: Denies: chest pain, palpitations Gastrointestinal: Denies: abdominal pain, diarrhea, nausea, vomiting Musculoskeletal: Reports: back pain; Denies: joint pain Skin: Denies: rash Neurological: Denies: headache, numbness Endocrine: Denies: increased thirst, increased urine Hematologic/Lymphatic: Denies: easy bruising All Other Systems: negative except mentioned in HPI Physical Exam Vital Signs Date Time Temp Pulse Resp B/P (MAP) Pulse Ox O2 Delivery O2 Flow Rate FiO2 06/01/18 21:44 98.1 92 15 98/50 99 06/01/18 21:59 Room Air Sp02 EP Interpretation: reviewed, normal General Appearance: well appearing, no apparent distress, alert, obese Head: normocephalic, atraumatic Eyes: bilateral eye PERRL, bilateral eye EOMI ENT: hearing grossly normal, normal pharynx Neck: full range of motion, supple, no meningismus Respiratory: chest non-tender, lungs clear, normal breath sounds Cardiovascular #1: regular rate, rhythm, no murmur Gastrointestinal: normal bowel sounds, non tender, no mass, no organomegaly, no bruit, non-distended Musculoskeletal: back normal - Tenderness to the lower back, normal range of motion, other - Right fifth toe: She has sutures over the MTP joint area. No redness or infection. Psychiatric: mood/affect normal Skin: warm/dry Medical Decision Making Diagnostic Impression: Primary Impression: Low back pain Qualified Codes: M54.5 - Low back pain Additional Impression: UTI (urinary tract infection) Qualified Codes: N30.00 - Acute cystitis without hematuria ER Course Patient presents with atraumatic lower back pain. This is an exacerbation of chronic problem. No red flags indicate cauda equina syndrome, spinal epidural abscess or neoplastic process. She does have possible mild UTI. New Cole placed. Levaquin given based on previous urine culture. We'll discharge back to assisted. Last Vital Signs Date Time Temp Pulse Resp B/P (MAP) Pulse Ox O2 Delivery O2 Flow Rate FiO2 06/01/18 21:59 98.1 88 15 98/50 99 Room Air Status: improved Disposition: ASSISTED LIVING Condition: Stable Scripts Levofloxacin* (LEVAQUIN*) 500 Mg Tablet 500 MG ORAL DAILY, #7 TAB Prov: Carlos Pina MD 06/01/18 Hydrocodone/Acetaminophen 5-325* (HYDROCODONE/ACETAMINOPHEN 5-325*) 1 Each Tablet 1 TAB ORAL Q6H PRN for For Pain, #20 TAB 0 Refills Prov: Carlos Pina MD 06/01/18 Referrals: Sven Cunningham MD (PCP) Patient Instructions: Back Pain, Adult Additional Instructions: Follow-up with your doctor in 7 days. Return if symptom worsen. Carlos Pina MD Jun 01, 2018 22:34
[2018-06-01 22:46] LABS: APPEARANCE,URINE CLEAR; BILIRUBIN, URINE NEGATIVE (NEGATIVE); COLOR,URINE PALE YELLOW; GLUCOSE, URINE (UA) NEGATIVE (NEGATIVE); KETONES,URINE NEGATIVE (NEGATIVE); LEUKOCYTE ESTERASE ,URINE 2+ (NEGATIVE); NITRITE,URINE NEGATIVE (NEGATIVE); PH,URINE 7 (4.5-8.0); PROTEIN,URINE NEGATIVE (NEGATIVE); UROBILINOGEN,URINE NORMAL MG/DL (0.0-1.0)
[2018-06-01] MEDS ORDERED: Levofloxacin 500mg tab ORAL ONE (23:00)
--- NOTE | 2018-06-01 23:00 | NUR ---
Spoke with Tanisha at [facility], aware of patient going back home by ambulance.
[2018-06-01 23:06] VITALS: BP 114/56
[2018-06-01] MEDS ORDERED: LEVAQUIN500 MG ORAL (23:19)
[2018-06-01] MEDS ORDERED: HYDROCODON-ACE1 EA15 ORAL (23:19)
[2018-06-01 23:40] VITALS: BP 114/56
--- NOTE | 2018-06-01 23:43 | NUR ---
ED Nurse Note: PT Dc per MD orders. pt is alert and oriented times 4. pt is bed bound, no skin issues noted in ER. pt has left with all belongings. pt vital signs is stable. pt report, status and condition, as well as vital signs have been reported to MD prior to DC. Report and PT hospital ER stay has been reported to Tila from PT halfway. pt was able to teach back her DC notes and prescriptions MD prescribed. ID band removed.
== END 2018-06-02 | disposition home or self-care (01) ==
LOC: EDBD 21:55 → EMR 22:00
DX: M54.5 Low back pain (principal); N30.00 Acute cystitis without hematuria; E66.9 Obesity, unspecified; Z88.0 Allergy status to penicillin; Z88.8 Allergy status to other drugs, medicaments and biological substances; F20.9 Schizophrenia, unspecified; Z68.28 Body mass index [BMI] 28.0-28.9, adult
CPT/HCPCS: 81003; 99283

== ENCOUNTER 2018-07-18 05:21 | Emergency (ER) | payer MEDICARE, OTHER ==
[~2018-07-18] VITALS: Ht 165.1 cm; Wt 79.4 kg
[~2018-07-18 05:21] MED LIST changes: +HYDROCODON-ACE1 EA15 ORAL; +LEVAQUIN500 MG ORAL
[2018-07-18 05:30] VITALS: BP 120/82
--- NOTE | 2018-07-18 05:30 | NUR ---
ER Nurse Note: Pt CLEVEPaula from [facility] c/o "feeling full" and needs to void. Pt stated her urinary cath fell out and needs a new cath in place. Pt a&ox4, VSS, no signs of distress. Pt denies pain. ERMD at pt side; will continue to montior.
--- NOTE | 2018-07-18 05:31 | Emergency Room Report ---
History of Present Illness General Chief Complaint: Female Urogenital Problems Source: Patient Present Illness HPI Is a 58-year-old female coming from a long term with chief complaint of dislodgment of a Cole catheter. She had a catheter in for about for 5 weeks. It just came out. group home called private EMS and bring her here but she called 911. Patient denies any other symptom. No fever chills but no nausea no vomiting. Allergies: Coded Allergies: FLUPHENAZINE (Unverified Allergy, Unknown, 06/01/18) HALOPERIDOL (Verified Allergy, Unknown, 09/29/17) QUETIAPINE (Unverified Allergy, Unknown, 06/01/18) SULFA (SULFONAMIDE ANTIBIOTICS) (Verified Allergy, Unknown, 09/29/17) Patient History Past Medical History: see triage record, old chart reviewed, psych hx Past Surgical History: other Pertinent Family History: none Social History: Denies: smoking Last Menstrual Period: ESPERANZA Now: No Immunizations: other Reviewed Nursing Documentation: PMH: Agreed; PSxH: Agreed Nursing Documentation-PMH Hx Cardiac Problems: No Hx Cancer: No Hx Gastrointestinal Problems: Yes - " Hx Neurological Problems: Yes Review of Systems Eye: Denies: eye pain, blurred vision ENT: Denies: ear pain, nose congestion, throat swelling Respiratory: Denies: cough, shortness of breath Cardiovascular: Denies: chest pain, palpitations Gastrointestinal: Denies: abdominal pain, diarrhea, nausea, vomiting Musculoskeletal: Denies: back pain, joint pain Skin: Denies: rash Neurological: Denies: headache, numbness Endocrine: Denies: increased thirst, increased urine Hematologic/Lymphatic: Denies: easy bruising All Other Systems: negative except mentioned in HPI Physical Exam Vital Signs Date Time Temp Pulse Resp B/P (MAP) Pulse Ox O2 Delivery O2 Flow Rate FiO2 07/18/18 05:22 98.1 57 16 120/82 98 Room Air vitals normal Sp02 EP Interpretation: reviewed, normal General Appearance: well appearing, no apparent distress, alert Head: normocephalic, atraumatic Eyes: bilateral eye PERRL, bilateral eye EOMI ENT: hearing grossly normal, normal pharynx Neck: full range of motion, supple, no meningismus Respiratory: chest non-tender, lungs clear, normal breath sounds Cardiovascular #1: regular rate, rhythm, no murmur Gastrointestinal: normal bowel sounds, non tender, no mass, no organomegaly, no bruit, non-distended Musculoskeletal: back normal, gait/station normal, normal range of motion Psychiatric: mood/affect normal Skin: warm/dry Medical Decision Making Diagnostic Impression: Primary Impression: Acute retention of urine Additional Impression: Malfunction of Cole catheter Qualified Codes: T83.011A - Breakdown (mechanical) of indwelling urethral catheter, initial encounter ER Course Patient with dislodgment of a Cole catheter. The balloon probably was warned out. A new Cole placed without any difficulty. Patient be sent back to long term. Last Vital Signs Date Time Temp Pulse Resp B/P (MAP) Pulse Ox O2 Delivery O2 Flow Rate FiO2 07/18/18 05:22 98.1 57 16 120/82 98 Room Air Status: improved Disposition: XFER SNF Condition: Stable Additional Instructions: Follow-up with your doctor as needed in a week. Return if worse. Carlos Pina MD Jul 18, 2018 05:31
[2018-07-18] MEDS ORDERED: DIAZEPAM10 MG ORAL (05:32)
[2018-07-18] MEDS ORDERED: MAPAP500 M2 PO (05:32)
[2018-07-18] MEDS ORDERED: UNICOMPLEX-M1 EACH PO (05:32)
[2018-07-18] MEDS ORDERED: MELATONIN 1 MG1 EAC1 ORAL (05:32)
[2018-07-18] MEDS ORDERED: DOXYCYCLINE MO100 M2 PO (05:32)
[2018-07-18] MEDS ORDERED: LITHIUM CARBON150 MG ORAL (05:32)
[2018-07-18] MEDS ORDERED: IRON325 M1 PO (05:32)
[2018-07-18] MEDS ORDERED: RISPERIDONE2 MG ORAL (05:32)
[2018-07-18] MEDS ORDERED: PANTOPRAZOLE SO40 MG ORAL (05:32)
--- NOTE | 2018-07-18 07:11 | NUR ---
ER Nurse Note: Pt asleep, no signs of distress. 16Fr galicia cath inserted; tolerated well. Pt voided over 1L of urine. Awaiting transportation. Hand of report to LILIANA Fontenot for continuty of care.
--- NOTE | 2018-07-18 07:12 | NUR ---
ED Nurse Note: received pt from LILIANA Jaramillo. Pt in [facility], [facility]. No s/s of distress. Waiting for transportation to arrive.
[2018-07-18 07:35] VITALS: BP 101/65
--- NOTE | 2018-07-18 07:36 | NUR ---
ER Nurse Note: Pt seen, treated, medically cleared for discharge by ER MD. Discharge instructions and prescriptions given with repeat verbalziation by pt. Instructed pt to follow up with primary care physcian within one week. Pt a&harlan4, VSS, no signs of distress. ID band removed. Pt left with all belongings, stable gait, via [facility] transportation. Addendum: 07/18/18 at 0737 by [email or web address] ER Nurse Note: Pt seen, treated, medically cleared for discharge by ER MD. Discharge instructions and prescriptions given with repeat verbalziation by pt. Instructed pt to follow up with primary care physcian within one week. Pt a&harlan4, VSS, no signs of distress. ID band removed. Pt left with all belongings, stable gait, via [facility] transportation back to [facility]
[2018-07-18 07:37] VITALS: BP 101/65
== END 2018-07-18 07:38 ==
LOC: EDBD 05:21 → EMR 05:38
DX: R33.9 Retention of urine, unspecified (principal); T83.021A Displacement of indwelling urethral catheter, initial encounter; Y84.6 Urinary catheterization as the cause of abnormal reaction of the patient, or of later complication, without mention of misadventure at the time of the procedure; Y92.129 Unspecified place in nursing home as the place of occurrence of the external cause; Z88.2 Allergy status to sulfonamides; Z88.8 Allergy status to other drugs, medicaments and biological substances
CPT/HCPCS: 51702; 99283

== ENCOUNTER 2018-08-17 22:22 | Emergency (ER) | payer MEDICARE, OTHER ==
[~2018-08-17] VITALS: Ht 165.1 cm; Wt 83.9 kg
[~2018-08-17 22:22] MED LIST changes: +DOXYCYCLINE MO100 M2 PO; +IRON325 M1 PO; +LITHIUM CARBON150 MG ORAL; +MAPAP500 M2 PO; +MELATONIN 1 MG1 EAC1 ORAL; +PANTOPRAZOLE SO40 MG ORAL; +RISPERIDONE2 MG ORAL; +UNICOMPLEX-M1 EACH PO
[2018-08-17 22:30] VITALS: BP 105/66
--- NOTE | 2018-08-17 22:33 | Emergency Room Report ---
History of Present Illness General Chief Complaint: Female Urogenital Problems Source: Patient, Medical Record, EMS Present Illness HPI This is a 58-year-old female with a history of paraplegia and is wheelchair- bound. She has a neurogenic bladder and required a chronic Cole. She presents with chief complaint of dislodgment of her Cole catheter. Her occurred this evening. It just came out. No trauma. It was there for a month. Denies any other trauma. Denies any symptom. Allergies: Coded Allergies: FLUPHENAZINE (Unverified Allergy, Unknown, 08/17/18) HALOPERIDOL (Verified Allergy, Unknown, 08/17/18) QUETIAPINE (Unverified Allergy, Unknown, 08/17/18) SULFA (SULFONAMIDE ANTIBIOTICS) (Verified Allergy, Unknown, 08/17/18) Patient History Past Medical History: see triage record, old chart reviewed Past Surgical History: other Pertinent Family History: none Social History: Denies: smoking Immunizations: other Reviewed Nursing Documentation: PMH: Agreed; PSxH: Agreed Nursing Documentation-PMH Hx Cardiac Problems: No Hx Cancer: No Hx Gastrointestinal Problems: Yes - " Hx Neurological Problems: Yes Review of Systems Eye: Denies: eye pain, blurred vision ENT: Denies: ear pain, nose congestion, throat swelling Respiratory: Denies: cough, shortness of breath Cardiovascular: Denies: chest pain, palpitations Gastrointestinal: Denies: abdominal pain, diarrhea, nausea, vomiting Musculoskeletal: Denies: back pain, joint pain Skin: Denies: rash Neurological: Denies: headache, numbness Endocrine: Denies: increased thirst, increased urine Hematologic/Lymphatic: Denies: easy bruising All Other Systems: negative except mentioned in HPI Physical Exam Vital Signs Date Time Temp Pulse Resp B/P (MAP) Pulse Ox O2 Delivery O2 Flow Rate FiO2 08/17/18 22:25 97.3 69 18 105/66 93 Room Air vitals unremarkable Sp02 EP Interpretation: reviewed, normal General Appearance: well appearing, no apparent distress, alert Head: normocephalic, atraumatic Eyes: bilateral eye PERRL, bilateral eye EOMI ENT: hearing grossly normal, normal pharynx Neck: full range of motion, supple, no meningismus Respiratory: chest non-tender, lungs clear, normal breath sounds Cardiovascular #1: regular rate, rhythm, no murmur Gastrointestinal: normal bowel sounds, non tender, no mass, no organomegaly, no bruit, non-distended Musculoskeletal: back normal, normal range of motion Psychiatric: mood/affect normal Skin: warm/dry Medical Decision Making Diagnostic Impression: Primary Impression: Acute retention of urine Additional Impression: Malfunction of Cole catheter Qualified Codes: T83.011A - Breakdown (mechanical) of indwelling urethral catheter, initial encounter ER Course Patient with dislodgment for Cole catheter. Most likely the balloon ruptured and Cole fell out from gravity. No evidence of any trauma. New Cole placed without any problem. About 1 L fluid came out. We'll discharge back to care home. Last Vital Signs Date Time Temp Pulse Resp B/P (MAP) Pulse Ox O2 Delivery O2 Flow Rate FiO2 08/17/18 22:25 97.3 69 18 105/66 93 Room Air Status: improved Disposition: XFER SNF Condition: Stable Additional Instructions: Follow-up with your Dr. in 7 days as needed. Return if symptom worsen. Carlos Pina MD Aug 17, 2018 22:33
--- NOTE | 2018-08-17 22:40 | NUR ---
ED Nurse Note: pt was brought in by SHARIFA from [facility] for diplacement of galicia cath today, pt states it just came out. hx urinary incontinence, last galicia change was month ago. per ERMD order 16 fr galicia inserted, 10ccNS inserted, 30cc yellow urine returned. Pt tolerated well. Pt cleared to be d/c per ERMD pt discharge and aftercare instruction provided, [facility] notified by Charge nurse, ambulance personnel at the bedside. VSS, galicia cath intact.
[2018-08-17 22:43] VITALS: BP 108/67
== END 2018-08-17 22:43 ==
LOC: EDBD 22:22 → EMR 22:40
DX: T83.011A Breakdown (mechanical) of indwelling urethral catheter, initial encounter (principal); R33.9 Retention of urine, unspecified; G82.20 Paraplegia, unspecified; Z99.3 Dependence on wheelchair; Z88.8 Allergy status to other drugs, medicaments and biological substances; Z88.2 Allergy status to sulfonamides
CPT/HCPCS: 51702; 99283

== ENCOUNTER 2018-10-03 13:01 | Emergency (ER) | payer MEDICARE, OTHER ==
[~2018-10-03] VITALS: Ht 165.1 cm; Wt 90.7 kg
--- NOTE | 2018-10-03 13:08 | Emergency Room Report ---
History of Present Illness General Chief Complaint: Abdominal Pain Source: Patient Present Illness HPI Patient sent in for abdominal pain that began last night. The pain was in her lower abdomen. The pain in her abdomen is rated 6/10 in pressure. Nonradiating. It is constant. It's been over a month since she had her catheter changed. She has a Cole catheter because she broke her foot and has been wheelchair-bound. She denies any fever or chills. She's had some constipation but takes a stool softener moved her bowels yesterday. It was somewhat painful but she was able to do so. No nausea and vomiting. She broke her foot over year ago. History of bipolar disorder. No suicidal or homicidal ideation. No upper respiratory symptoms, chest pain, cough, rashes. She has chronic lower extremity weakness. Allergies: Coded Allergies: FLUPHENAZINE (Unverified Allergy, Unknown, 08/17/18) HALOPERIDOL (Verified Allergy, Unknown, 08/17/18) QUETIAPINE (Unverified Allergy, Unknown, 08/17/18) SULFA (SULFONAMIDE ANTIBIOTICS) (Verified Allergy, Unknown, 08/17/18) Uncoded Allergies: SULFA (Allergy, Unknown, 10/03/18) Patient History Past Medical History: see triage record Social History: Reports: smoking Social History Narrative [place] Now: No Reviewed Nursing Documentation: PMH: Agreed; PSxH: Agreed Nursing Documentation-PMH Past Medical History: No History, Except For Hx Cardiac Problems: No - Urinary retention/ Cole catheter Hx Cancer: No Hx Gastrointestinal Problems: Yes - " History Of Psychiatric Problem: Yes - Anxiety Hx Neurological Problems: Yes Review of Systems All Other Systems: negative except mentioned in HPI Physical Exam Vital Signs Date Time Temp Pulse Resp B/P (MAP) Pulse Ox O2 Delivery O2 Flow Rate FiO2 10/03/18 12:58 87 20 95 Room Air Sp02 EP Interpretation: reviewed, normal General Appearance: no apparent distress, GCS 15, Chronically Ill Head: normocephalic Eyes: bilateral eye normal inspection, bilateral eye PERRL ENT: moist mucus membranes Neck: supple Respiratory: lungs clear, normal breath sounds Cardiovascular #1: regular rate, rhythm Cardiovascular #2: 2+ radial (R) Gastrointestinal: normal inspection, normal bowel sounds, no mass, non- distended, no guarding, no rebound, tenderness - Suprapubic area, overweight Genitourinary: no CVA tenderness Musculoskeletal: back normal, gait/station normal, normal range of motion Neurologic: alert, oriented x3, motor weakness - Lower extremities Psychiatric: mood/affect normal Skin: normal inspection, warm/dry Medical Decision Making Diagnostic Impression: Primary Impression: Abdominal pain Qualified Codes: R10.30 - Lower abdominal pain, unspecified Additional Impression: Dysuria ER Course Patient presents with abdominal pain with lack of change of Cole. Differential includes appendicitis, urinary tract infection, diverticulitis amongst others. The Cole catheter will be changed. Labs will be obtained. No imaging studies are indicated. After the Cole catheter was changed the patient states that the pain is resolved completely. The patient pain declines medication at this time. Labs unremarkable. Minimal pyuria. Discussed findings with patient. She feels she needs antibiotics. Macrobid is started. Patient is improved and stable for outpatient observation and treatment. Laboratory Tests Test 10/03/18 13:20 White Blood Count 5.5 K/UL (4.8-10.8) Red Blood Count 4.15 M/UL (4.20-5.40) L Hemoglobin 12.4 G/DL (12.0-16.0) Hematocrit 38.1 % (37.0-47.0) Mean Corpuscular Volume 92 FL (80-99) Mean Corpuscular Hemoglobin 29.8 PG (27.0-31.0) Mean Corpuscular Hemoglobin Concent 32.5 G/DL (32.0-36.0) Red Cell Distribution Width 12.2 % (11.6-14.8) Platelet Count 236 K/UL (150-450) Mean Platelet Volume 7.2 FL (6.5-10.1) Neutrophils (%) (Auto) 60.7 % (45.0-75.0) Lymphocytes (%) (Auto) 26.5 % (20.0-45.0) Monocytes (%) (Auto) 8.7 % (1.0-10.0) Eosinophils (%) (Auto) 3.1 % (0.0-3.0) H Basophils (%) (Auto) 1.1 % (0.0-2.0) Urine Color Pale yellow Urine Appearance Clear Urine pH 8 (4.5-8.0) Urine Specific [place] 1.010 (1.005-1.035) Urine Protein Negative (NEGATIVE) Urine Glucose (UA) Negative (NEGATIVE) Urine Ketones Negative (NEGATIVE) Urine Blood 4+ (NEGATIVE) H Urine Nitrite Negative (NEGATIVE) Urine Bilirubin Negative (NEGATIVE) Urine Urobilinogen Normal MG/DL (0.0-1.0) Urine Leukocyte Esterase 1+ (NEGATIVE) H Urine RBC 2-4 /HPF (0 - 2) H Urine WBC 2-4 /HPF (0 - 2) Urine Squamous Epithelial Cells Few /LPF (NONE/OCC) Urine Bacteria Few /HPF (NONE) Sodium Level 139 MMOL/L (136-145) Potassium Level 4.0 MMOL/L (3.5-5.1) Chloride Level 102 MMOL/L (98-107) Carbon Dioxide Level 33 MMOL/L (21-32) H Anion Gap 4 mmol/L (5-15) L Blood Urea Nitrogen 13 mg/dL (7-18) Creatinine 0.6 MG/DL (0.55-1.30) Estimate Glomerular Filtration Rate > 60 mL/min (>60) Glucose Level 102 MG/DL (74-106) Calcium Level 9.1 MG/DL (8.5-10.1) Total Bilirubin 0.4 MG/DL (0.2-1.0) Aspartate Amino Transferase (AST) 16 U/L (15-37) Alanine Aminotransferase (ALT) 25 U/L (12-78) Alkaline Phosphatase 109 U/L (46-116) Total Protein 7.1 G/DL (6.4-8.2) Albumin 3.1 G/DL (3.4-5.0) L Globulin 4.0 g/dL Albumin/Globulin Ratio 0.8 (1.0-2.7) L Lipase 137 U/L (73-393) Last Vital Signs Date Time Temp Pulse Resp B/P (MAP) Pulse Ox O2 Delivery O2 Flow Rate FiO2 10/03/18 16:01 98.7 67 18 122/61 100 Room Air Status: improved Disposition: XFER SNF Condition: Improved Scripts Nitrofurantoin Monohyd/M-Cryst* (MACROBID 100 MG*) 100 Mg Capsule 100 MG ORAL EVERY 12 HOURS, #14 CAP Prov: Mauricio Hernandes MD 10/03/18 Mauricio Hernandes MD October 03, 2018 13:08
[2018-10-03 13:31] VITALS: BP 116/87
--- NOTE | 2018-10-03 13:33 | NUR ---
ED Nurse Note: Pt brought in by ambulance from [facility] c/o lower abd pain since last night, 6/10 sharp and burning. pt reports she was supposed to change galicia cath but wasn't able to and last time pt changed galicia was about 2 months ago. PT galicia cath was changed upon arrival 16 fr, 20 cc yellow urine foul smell noted, pt tolerated well. pt now reports pain relief, states she does not have abd pain anymore. ERMD at the bedside and aware of galicia change. vss, will cont monitor. warm blanket provided for comfort
[2018-10-03 13:40] LABS: BASOPHILS % (AUTO) 1.1 % (0.0-2.0); EOSINOPHILS % (AUTO) 3.1 % (0.0-3.0); HEMATOCRIT 38.1 % (37.0-47.0); HEMOGLOBIN 12.4 G/DL (12.0-16.0); LYMPHOCYTES % (AUTO) 26.5 % (20.0-45.0); MEAN CORPUSCULAR VOLUME 92 FL (80-99); MONOCYTES % (AUTO) 8.7 % (1.0-10.0); NEUTROPHILS % (AUTO) 60.7 % (45.0-75.0); PLATELET COUNT 236 K/UL (150-450); RED BLOOD COUNT 4.15 M/UL (4.20-5.40); RED CELL DISTRIBUTION WIDTH 12.2 % (11.6-14.8); WHITE BLOOD COUNT 5.5 K/UL (4.8-10.8)
[2018-10-03 13:41] LABS: APPEARANCE,URINE CLEAR; BILIRUBIN, URINE NEGATIVE (NEGATIVE); COLOR,URINE PALE YELLOW; GLUCOSE, URINE (UA) NEGATIVE (NEGATIVE); KETONES,URINE NEGATIVE (NEGATIVE); LEUKOCYTE ESTERASE ,URINE 1+ (NEGATIVE); NITRITE,URINE NEGATIVE (NEGATIVE); PH,URINE 8 (4.5-8.0); PROTEIN,URINE NEGATIVE (NEGATIVE); UROBILINOGEN,URINE NORMAL MG/DL (0.0-1.0)
[2018-10-03 13:59] LABS: ANION GAP 4 mmol/L (5-15); BLOOD UREA NITROGEN 13 mg/dL (7-18); CALCIUM 9.1 MG/DL (8.5-10.1); CARBON DIOXIDE 33 MMOL/L (21-32); CHLORIDE 102 MMOL/L (98-107); CREATININE 0.6 MG/DL (0.55-1.30); SODIUM 139 MMOL/L (136-145)
[2018-10-03 14:03] LABS: ALANINE AMINOTRANSFERASE 25 U/L (12-78); ALBUMIN 3.1 G/DL (3.4-5.0); ALBUMIN/GLOBULIN RATIO 0.8 (1.0-2.7); ALKALINE PHOSPHATASE 109 U/L (46-116); ASPARTATE AMINO TRANSFERASE 16 U/L (15-37); BILIRUBIN,TOTAL 0.4 MG/DL (0.2-1.0)
--- NOTE | 2018-10-03 14:20 | NUR ---
ED Nurse Note: PT REQ FOOD, VERIFIED W/ ERMD PT GIVEN SANDWICH AND JUICE
[2018-10-03] MEDS ORDERED: NITROFURANTOIN100 M2 ORAL (14:56)
--- NOTE | 2018-10-03 15:48 | NUR ---
ED Nurse Note: report given to chhaya Warren going back to [facility], ambulance at the bedside, vss, galicia intact. all belongings sent w/ pt
--- NOTE | 2018-10-03 15:50 | NUR ---
ED Nurse Note: pt is cleared to be d/c per ERMD, pt discharge and aftercare instruction w/ prescription given to ambulance personnel, pt education done via discussion, pt verbalized understanding and agrees with plan. pt vss. resp even and unlabored on RA. endorsed care to ambulance personnel.
[2018-10-03 16:01] VITALS: BP 122/61
== END 2018-10-03 16:00 ==
LOC: EDBD 13:01 → EMR 16:00
DX: R10.30 Lower abdominal pain, unspecified (principal); R30.0 Dysuria; Z88.8 Allergy status to other drugs, medicaments and biological substances; Z88.2 Allergy status to sulfonamides; F17.200 Nicotine dependence, unspecified, uncomplicated; F41.9 Anxiety disorder, unspecified; E66.3 Overweight; Z68.33 Body mass index [BMI] 33.0-33.9, adult
CPT/HCPCS: 36415; 51702; 80053; 81003; 83690; 85025; 99284

== ENCOUNTER 2018-11-08 19:31 | Emergency (ER) | payer MEDICARE, OTHER ==
[~2018-11-08] VITALS: Ht 165.1 cm; Wt 108.9 kg
[~2018-11-08 19:31] MED LIST changes: +NITROFURANTOIN100 M2 ORAL
[2018-11-08 19:41] VITALS: BP 115/71
--- NOTE | 2018-11-08 19:41 | NUR ---
ED Nurse Note: Pt was CLEVEA from [facility], c/o to change of F/C. Pt is A/O X 4, bed rest, c/o Hx of urinary retention for few years. Vital signs stable at this time, waiting for orders.
[2018-11-08 20:17] LABS: APPEARANCE,URINE CLEAR; BILIRUBIN, URINE NEGATIVE (NEGATIVE); COLOR,URINE PALE YELLOW; GLUCOSE, URINE (UA) NEGATIVE (NEGATIVE); KETONES,URINE NEGATIVE (NEGATIVE); LEUKOCYTE ESTERASE ,URINE 2+ (NEGATIVE); NITRITE,URINE NEGATIVE (NEGATIVE); PH,URINE 6.5 (4.5-8.0); PROTEIN,URINE 1+ (NEGATIVE); UROBILINOGEN,URINE NORMAL MG/DL (0.0-1.0)
--- NOTE | 2018-11-08 21:14 | NUR ---
Spoke with Lauren at [facility], aware of patient going back by ambulance. [facility] [phone]
[2018-11-08 21:42] VITALS: BP 116/73
--- NOTE | 2018-11-08 21:42 | NUR ---
TRANSFER TO [facility]: Patient transferred back to [facility] as ordered. Ambulance arrived. Patient is cleared to be discharged per Dr. Miller. F/c was reinserted. Pt is aox 4 on room air with stable vital signs. Pt was given dc and prescription instructions and was able to verbalize understanding. Pt ID band and removed. pt is on bed rest and took all belongings.
--- NOTE | 2018-11-08 23:03 | Emergency Room Report ---
History of Present Illness General Chief Complaint: Female Urogenital Problems Source: Patient Present Illness HPI Patient is a 58-year-old female sent in from facility for Cole catheter changing. Patient a prior history of chronic indwelling Cole catheter. Patient denies any current complaints regarding the catheter. She denies any fever. She had not been vomiting.There had reportedly been present for 1-1/2 months. Allergies: Coded Allergies: FLUPHENAZINE (Unverified Allergy, Unknown, 08/17/18) HALOPERIDOL (Verified Allergy, Unknown, 08/17/18) QUETIAPINE (Unverified Allergy, Unknown, 08/17/18) SULFA (SULFONAMIDE ANTIBIOTICS) (Verified Allergy, Unknown, 08/17/18) Uncoded Allergies: SULFA (Allergy, Unknown, 10/03/18) Patient History Past Medical History: see triage record Now: No - NO Reviewed Nursing Documentation: PMH: Agreed Nursing Documentation-PMH Past Medical History: No History, Except For Hx Cancer: No Hx Gastrointestinal Problems: Yes - " Hx Neurological Problems: Yes Physical Exam Vital Signs Date Time Temp Pulse Resp B/P (MAP) Pulse Ox O2 Delivery O2 Flow Rate FiO2 11/08/18 19:35 98.1 75 16 112/72 (85) 93 Room Air General Appearance: well appearing, no apparent distress Head: normocephalic, atraumatic ENT: hearing grossly normal, normal voice Neck: full range of motion, supple Respiratory: no respiratory distress, speaking full sentences Musculoskeletal: normal inspection Neurologic: normal inspection, alert, oriented x3, responsive, normal gait Psychiatric: normal inspection, mood/affect normal Skin: no rash Medical Decision Making Diagnostic Impression: Primary Impression: Urinary retention Additional Impression: Cole catheter in place ER Course Patient presented for Cole catheter change. Differential diagnosis include was not limited to UTI, urinary retention among others. Patient has a benign exam and does not appear to require any further imaging or laboratory testing at this time. Patient is here does not appear to be infected at this time. Patient Cole catheter was changed. Patient appears to be stable for discharge back to her facility. Patient was sent back to her facility via BLS ambulance. Labs Test 11/08/18 20:00 Urine Color Pale yellow Urine Appearance Clear Urine pH 6.5 (4.5-8.0) Urine Specific [place] 1.010 (1.005-1.035) Urine Protein 1+ (NEGATIVE) Urine Glucose (UA) Negative (NEGATIVE) Urine Ketones Negative (NEGATIVE) Urine Blood 1+ (NEGATIVE) Urine Nitrite Negative (NEGATIVE) Urine Bilirubin Negative (NEGATIVE) Urine Urobilinogen Normal MG/DL (0.0-1.0) Urine Leukocyte Esterase 2+ (NEGATIVE) Urine RBC 2-4 /HPF (0 - 2) Urine WBC 0-2 /HPF (0 - 2) Urine Squamous Epithelial Cells Few /LPF (NONE/OCC) Urine Bacteria Occasional /HPF (NONE) Last Vital Signs Date Time Temp Pulse Resp B/P (MAP) Pulse Ox O2 Delivery O2 Flow Rate FiO2 11/08/18 19:41 98.1 76 16 115/71 93 Room Air Status: improved Disposition: HOME, SELF-CARE Referrals: Nikhil Robles MD (PCP) Patient Instructions: Cole Catheter Care, Adult Geoffrey Miller MD Nov 08, 2018 23:03
== END 2018-11-08 21:42 | disposition home or self-care (01) ==
LOC: EDBD 19:31 → EMR 19:49
DX: R33.9 Retention of urine, unspecified (principal); Z46.6 Encounter for fitting and adjustment of urinary device; Z88.8 Allergy status to other drugs, medicaments and biological substances; Z88.2 Allergy status to sulfonamides
CPT/HCPCS: 81003; 99283

== ENCOUNTER 2018-12-09 16:22 | Emergency (ER) | payer MEDICARE, OTHER ==
[~2018-12-09] VITALS: Ht 165.1 cm; Wt 81.6 kg
[2018-12-09 16:24] VITALS: BP 131/76
--- NOTE | 2018-12-09 16:24 | NUR ---
ED Nurse Note: Patient brought into ER by ambulance from [facility]. per EMS facility nurse reported that pt's colostomy bag needs to be changed but colostomy bag not present. per pt, she goes to bedside commode and she is here for F/C changes because it was leaking. pt aao x4 but bedridden. skin clean and intact. calm and cooperative. pt is in gown.
--- NOTE | 2018-12-09 16:45 | NUR ---
ED Nurse Note: F/C changed to 16Fr. no leaking noted. yellow urine noted in the bag.
--- NOTE | 2018-12-09 17:46 | NUR ---
ED Nurse Note: pt was informed about delayed ETA.
--- NOTE | 2018-12-09 17:54 | Emergency Room Report ---
History of Present Illness General Chief Complaint: General Complaint Source: Patient, Medical Record, EMS Present Illness HPI Patient presents with complaints of decreased output from her Cole catheter patient also felt a discomfort sensation Which usually indicates time to change the catheter Denies any vomiting or diarrhea denies any fevers or chills denies any chest pain or shortness of breath Patient has chronic indwelling catheter appears to have it replaced every month or so and at this time presents from Facility for exchange of the catheter Allergies: Coded Allergies: FLUPHENAZINE (Unverified Allergy, Unknown, 08/17/18) HALOPERIDOL (Verified Allergy, Unknown, 08/17/18) QUETIAPINE (Unverified Allergy, Unknown, 08/17/18) SULFA (SULFONAMIDE ANTIBIOTICS) (Verified Allergy, Unknown, 08/17/18) Uncoded Allergies: SULFA (Allergy, Unknown, 10/03/18) Patient History Past Medical History: see triage record Pertinent Family History: none Reviewed Nursing Documentation: PMH: Agreed; PSxH: Agreed Nursing Documentation-PMH Hx Cancer: No Hx Gastrointestinal Problems: Yes - " Hx Neurological Problems: Yes Review of Systems All Other Systems: negative except mentioned in HPI Physical Exam Vital Signs Date Time Temp Pulse Resp B/P (MAP) Pulse Ox O2 Delivery O2 Flow Rate FiO2 12/09/18 16:16 98.4 61 19 131/76 (94) 98 Room Air Sp02 EP Interpretation: reviewed, normal General Appearance: no apparent distress Head: normocephalic, atraumatic Eyes: bilateral eye PERRL, bilateral eye EOMI ENT: hearing grossly normal, normal pharynx Neck: supple Respiratory: lungs clear, no respiratory distress, no retraction Cardiovascular #1: regular rate, rhythm Gastrointestinal: non tender, soft Genitourinary: no CVA tenderness Musculoskeletal: normal inspection Neurologic: alert, oriented x3, responsive Skin: no rash, palpation normal Lymphatic: normal inspection, no adenopathy Medical Decision Making Diagnostic Impression: Primary Impression: Cole catheter in place ER Course Given the patient's history and presentation the indwelling catheter appears to have some crusting around the area and does not appear to be flowing very well therefore the catheter was replaced patient does feel symptomatically improved And at this time will have continued outpatient follow-up Last Vital Signs Date Time Temp Pulse Resp B/P (MAP) Pulse Ox O2 Delivery O2 Flow Rate FiO2 12/09/18 16:24 61 19 Room Air 12/09/18 16:24 98.4 131/76 98 Status: improved Disposition: XFER SNF Condition: Improved Additional Instructions: Patient is provided with the discharge instructions notified to follow up with primary doctor in the next 2-3 days otherwise return to the er with any worsening symptoms. Please note that this report is being documented using DRAGON technology. This can lead to erroneous entry secondary to incorrect interpretation by the dictating instrument. Hermann Neville DO Dec 09, 2018 17:54
--- NOTE | 2018-12-09 18:53 | NUR ---
ED Nurse Note: Ashley at [facility] informed about pt's return.
[2018-12-09 18:54] VITALS: BP 126/77
--- NOTE | 2018-12-09 18:56 | NUR ---
ED Nurse Note: pt left unit with 2 EMS in stable condition.
== END 2018-12-09 18:55 ==
LOC: EDBD 16:22 → EMR 18:55
DX: T83.091A Other mechanical complication of indwelling urethral catheter, initial encounter (principal); X58.XXXA Exposure to other specified factors, initial encounter; Y92.9 Unspecified place or not applicable; Z88.2 Allergy status to sulfonamides; Z88.8 Allergy status to other drugs, medicaments and biological substances
CPT/HCPCS: 99282

== ENCOUNTER 2018-12-26 17:27 | Emergency (ER) | payer MEDICARE, OTHER ==
[~2018-12-26] VITALS: Ht 165.1 cm; Wt 83.9 kg
--- NOTE | 2018-12-26 17:45 | NUR ---
ED Nurse Note: PT BROUGHT IN BY AMBULANCE FROM [facility] C/C SANCHEZ CHANGE AND WHITE DISCHARGE IN SANCHEZ BAG. PT DENIES PAIN. NOTED SANCHEZ 16 FR WITH YELLOW CLOUDY URINE IN BAG. SANCHEZ REMOVED PER ERMD ORDER AND INSERTED 16FR SANCHEZ. 30CC URINE RETURNED, SAMPLE OBTAINED. ERMD NOTIFIED.
[2018-12-26 17:46] LABS: APPEARANCE,URINE CLEAR; BILIRUBIN, URINE NEGATIVE (NEGATIVE); GLUCOSE, URINE (UA) NEGATIVE (NEGATIVE); KETONES,URINE NEGATIVE (NEGATIVE); LEUKOCYTE ESTERASE ,URINE 2+ (NEGATIVE); NITRITE,URINE NEGATIVE (NEGATIVE); PH,URINE 7 (4.5-8.0); PROTEIN,URINE NEGATIVE (NEGATIVE); UROBILINOGEN,URINE NORMAL MG/DL (0.0-1.0)
[2018-12-26 17:48] LABS: COLOR,URINE YELLOW
[2018-12-26 18:00] VITALS: BP 106/67
--- NOTE | 2018-12-26 18:38 | NUR ---
Spoke with Shelli at [facility], aware of patients return back home. [facility] [phone]
[2018-12-26] MEDS ORDERED: Fluconazole 100mg tab ORAL ONE (18:45)
[2018-12-26] MEDS ORDERED: FLUCONAZOLE150 MG ORAL (18:58)
--- NOTE | 2018-12-26 19:03 | NUR ---
HAND-OFF: Report given to LILIANA ESPINOZA AND [facility].
--- NOTE | 2018-12-26 19:05 | NUR ---
ED Nurse Note: Patient provided a sandwich and juice.
--- NOTE | 2018-12-26 20:02 | NUR ---
ED Nurse Note: Patient resting comfortably, awaiting arrival of transport for return to SNF.
--- NOTE | 2018-12-26 20:46 | Emergency Room Report ---
History of Present Illness General Chief Complaint: Female Urogenital Problems Source: Patient, Medical Record, EMS Present Illness HPI 58-year-old female presents ED for evaluation. Coming from assisted living. For Galicia catheter replacement. has chronic Galicia catheter and states it was dislodged today. States she sees some white sediment in her urine. Notes some dysuria. Denies hematuria. Denies flank pain. Or vomiting. Denies fevers or chills. No other aggravating relieving factors. Denies any other associated symptoms Allergies: Coded Allergies: FLUPHENAZINE (Unverified Allergy, Unknown, 08/17/18) HALOPERIDOL (Verified Allergy, Unknown, 08/17/18) QUETIAPINE (Unverified Allergy, Unknown, 08/17/18) SULFA (SULFONAMIDE ANTIBIOTICS) (Verified Allergy, Unknown, 08/17/18) Uncoded Allergies: SULFA (Allergy, Unknown, 10/03/18) Patient History Past Medical History: psych hx Pertinent Family History: none Social History: Denies: smoking, alcohol use, drug use Last Menstrual Period: na Now: No Immunizations: UTD Reviewed Nursing Documentation: PMH: Agreed; PSxH: Agreed Nursing Documentation-PMH Past Medical History: No History, Except For Hx Cancer: No Hx Gastrointestinal Problems: Yes Hx Neurological Problems: Yes Review of Systems All Other Systems: negative except mentioned in HPI Physical Exam Vital Signs Date Time Temp Pulse Resp B/P (MAP) Pulse Ox O2 Delivery O2 Flow Rate FiO2 12/26/18 17:27 97.7 70 20 106/67 (80) 97 Room Air Sp02 EP Interpretation: reviewed, normal General Appearance: no apparent distress, alert, GCS 15, non-toxic, obese Head: normocephalic, atraumatic Eyes: bilateral eye normal inspection, bilateral eye PERRL ENT: hearing grossly normal, normal pharynx, no angioedema, normal voice Neck: full range of motion, supple/symm/no masses Respiratory: chest non-tender, lungs clear, normal breath sounds, speaking full sentences Cardiovascular #1: regular rate, rhythm, no edema Cardiovascular #2: 2+ carotid (R), 2+ carotid (L), 2+ radial (R), 2+ radial (L) , 2+ dorsalis pedis (R), 2+ dorsalis pedis (L) Gastrointestinal: normal bowel sounds, non tender, soft, non-distended, no guarding, no rebound Rectal: deferred Genitourinary: normal inspection, no CVA tenderness Musculoskeletal: back normal, gait/station normal, normal range of motion, non- tender Neurologic: alert, oriented x3, responsive, motor strength/tone normal, sensory intact, speech normal Psychiatric: judgement/insight normal, memory normal, mood/affect normal, no suicidal/homicidal ideation Reflexes: 3+ bicep (R), 3+ bicep (L), 3+ tricep (R), 3+ tricep (L), 3+ knee (R) , 3+ knee (L) Lymphatic: no adenopathy Medical Decision Making Diagnostic Impression: Primary Impression: Malfunction of Gal[place] catheter Qualified Codes: T83.011A - Breakdown (mechanical) of indwelling urethral catheter, initial encounter ER Course Hospital Course 58 yo F presents to ED for galicia catheter replacement. dysuria Differential diagnoses include: obstruction, UTI, BPH Clinical course Patient placed on stretcher. After initial history and physical I ordered UA, galicia cather UA noted to be unremarkable. discussed findings with patient. consideration for candidasis. we will discharge with fluconazole. given fluconazole here Dr Robles aware that patient will be discharged back to facility Diagnosis - malfunction of galicia catheter Stable and discharged to assisted living with galicia, Rx Fluconaozle. Instructed to followup with PMD. Return to ED if symptoms recur or worsen Labs Test 12/26/18 17:35 Urine Color Yellow Urine Appearance Clear Urine pH 7 (4.5-8.0) Urine Specific [place] 1.005 (1.005-1.035) Urine Protein Negative (NEGATIVE) Urine Glucose (UA) Negative (NEGATIVE) Urine Ketones Negative (NEGATIVE) Urine Blood 2+ (NEGATIVE) Urine Nitrite Negative (NEGATIVE) Urine Bilirubin Negative (NEGATIVE) Urine Urobilinogen Normal MG/DL (0.0-1.0) Urine Leukocyte Esterase 2+ (NEGATIVE) Urine RBC 2-4 /HPF (0 - 2) Urine WBC 2-4 /HPF (0 - 2) Urine Squamous Epithelial Cells Few /LPF (NONE/OCC) Urine Bacteria Few /HPF (NONE) Last Vital Signs Date Time Temp Pulse Resp B/P (MAP) Pulse Ox O2 Delivery O2 Flow Rate FiO2 12/26/18 18:00 97.7 70 18 106/67 97 Room Air Status: improved Disposition: ASSISTED LIVING Condition: Stable Scripts Fluconazole (FLUCONAZOLE) 150 Mg Tablet 150 MG ORAL ONCE, #3 TAB Prov: Prince Suggs MD 12/26/18 Patient Instructions: Vaginal Yeast Infection, Adult Prince Suggs MD Dec 26, 2018 20:46
--- NOTE | 2018-12-26 21:02 | NUR ---
ED Nurse Note: Patient growing restless while awaiting arrival of transport. Patient reassured of arrival.
[2018-12-26] MEDS ORDERED: Acetaminophen 500mg (ES) tab ORAL ONE (21:45)
[2018-12-26 22:15] VITALS: BP 106/67
--- NOTE | 2018-12-26 22:15 | NUR ---
ED Nurse Note: Patient cleared for discharge, report given to transport. patient signed discharge paperwork and verbalized understanding.
== END 2018-12-26 22:15 | disposition home or self-care (01) ==
LOC: EDBD 17:27 → EMR 18:15
DX: T83.018A Breakdown (mechanical) of other urinary catheter, initial encounter (principal); Y84.6 Urinary catheterization as the cause of abnormal reaction of the patient, or of later complication, without mention of misadventure at the time of the procedure; Y92.129 Unspecified place in nursing home as the place of occurrence of the external cause; Z88.2 Allergy status to sulfonamides; Z88.8 Allergy status to other drugs, medicaments and biological substances
CPT/HCPCS: 81003; 99283